=== PATIENT | male | born 1960 | race Caucasian/White ===

== ENCOUNTER 2019-05-15 15:15 | Outpatient (RCR) | payer BC, SELFPAY ==
[2019-05-08 15:06] VITALS: BP 140/86; PULSE 83; RESP 16; TEMP 37; BMI 91.4
--- NOTE | 2019-05-08 16:44 | HP.PCM_ITS ---
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 History of Wound: Patient was working in his garage 6-8 weeks ago when he bumped his leg that created an opened area. He went to his PCP when it wasn't healed. PCP started him on Bactrim and Silvadene cream. He has a history of bilateral le g edema. He has worn compression in the past, but has not been wearing it lately. 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 He denies fevers. He state he has a good appetite. Past Medical History Past Medical History: Chronic Problems Ulcer of right lower leg (Chronic) Bilateral edema of lower extremity (Chronic) Chronic anticoagulation (Chronic) Past Medical History: History of DVT and PE. On Xeralto. Allergies/Adverse Reactions: Allergies No Known Allergies Allergy (Verified 05/08/19 15:34) Home Medications: Ambulatory Orders Medication Instructions Recorded Cyanocobalamin [Vitamin B12] mcg PO DAILY@0800 05/08/19 Furosemide 40 mg PO BID 05/08/19 Lactobacillus Acidophilus 1 ea PO DAILY 05/08/19 [Acidophilus] Multivitamin [Daily Multiple 1 ea PO DAILY 05/08/19 Vitamin] Rivaroxaban [Xarelto] 20 mg PO DAILY 05/08/19 Smoking Status: Never smoker Review of Systems Constitutional: Denies: Chills, Fever, Weight Change Eyes: Denies: Pain, Vision Change HEENT: Denies: Difficulty Hearing, Difficulty Swallowing, Sinus Congestion Cardiovascular: Denies: Chest Pain, Palpitations Respiratory: Denies: Cough, Shortness of Breath Gastrointestinal: Denies: Diarrhea, Nausea, Vomiting Musculoskeletal: Reports: Leg Pain Skin: Reports: Wounds - right lower leg ulcer Neurological: Denies: Balance problems, Change in Speech, Incoordination Endocrine: Denies: Heat/ Cold Intolerance, Polydipsia, Polyuria Hematologic/ Lymphatic: Reports: Easy Bruising, Easy Bleeding - Physical Exam Vital Signs Temp Pulse Resp BP 98.6 F 83 16 140/86 H 05/08/19 15:06 05/08/19 15:06 05/08/19 15:06 05/08/19 15:06 General: Alert, Oriented x3, Cooperative HEENT: Atraumatic Oral: Moist Mucosa Lungs: Clear to auscultation, Normal air movement Cardiovascular: Regular rate, Regular Rhythm Abdomen: Bowel Sounds Present, Soft Extremities: Capillary Refill Less than 3 Seconds, Diminished Peripheral Pulses, Edema - bilateral lower leg edema with brown discoloration Skin: Ulcer/ Wound - right lower leg ulcer Wound Measurements and Assessment WC - Nurse 1 - General Ulcer Measurement Start: 05/08/19 15:06 Freq: Status: Active Protocol: Activity Type Activity Date Activity User E-Sign Co-Sign Detail Recorded Client Recorded Date Recorded By Document 05/08/19 15:06 [facility] [id number] 05/08/19 15:26 [facility] 05/08/19 15:06 Wound Center Nurse 1 [Ulcer Assessment] #1- R LUIS CLUSTER -Combined with other wound No -Current Size (cm) - Length 2.4 -Current Size (cm) - Width 2.1 -Current Size (cm) - Depth 0.1 -Total Square Cm 5.04 -Date of Last Picture (Recall this 05/08/19 field) -Photo Taken Yes -Epithelialization None Present -Tunneling No -Undermining/Tunneling No -Circular Undermining No -Exudate Amt Small -Exudate Type Serous -Wound Margin Distinct, Outline Attached -Granulation Amt None Present (0 %) -Slough/Fibrin Yes -Necrosis Amt Large (67-100%) -Necrotic Tissue Type Adherent Slough -Texture (Dagmar-wound Skin Appearance) Assessed, Scarring -Moisture (Dagmar-wound Skin Appearance Assessed ) -Color (Dagmar-wound Skin Appearance) Assessed, Hemosiderin Staining -Temperature (Dagmar-wound Skin No Abnormality Appearance) (Pt Warm) -Tenderness on Palpation (Dagmar-wound Yes Skin Appearance) -Ulcer Cleansing Rinsed/ Irrigated with Saline -Foul Odor after Cleansing No -Anesthetic Used 5% Lidocaine Gel [Edema Assessment] -Lower Limb Edema Present Yes -Right Calf (cm) 50 -Right Ankle (cm) 31.1 -Left Calf (cm) 51 -Left Ankle (cm) 31.5 WC - Nurse 2 - General Ulcer CM Notes Start: 05/08/19 15:06 Freq: Status: Active Protocol: Activity Type Activity Date Activity User E-Sign Co-Sign Detail Recorded Client Recorded Date Recorded By Document 05/08/19 15:57 [id number] 05/08/19 16:00 05/08/19 15:57 Wound Center Nurse 2 [Procedure/Treatment] #1- R LUIS CLUSTER -Time 15:57 -Correct Patient Yes -Correct Side, Site, Position Yes -Correct Procedure Yes -Procedure Performed Yes -Type of Procedure Debridement -Clinical Debridement Subcutaneous -Post Debridement Size (cm) - Length 2.5 -Post Debridement Size (cm) - Width 2.7 -Post Debridement Size (cm) - Depth 0.2 -Total Square Cm 6.75 -Wound/Ulcer Outcome Not Healed -Ulcer Cleansing Rinsed/ Irrigated with Saline -Foul Odor after Cleansing No -Bioengineered Tissue No -Bleeding Controlled with Pressure -Offloading No -Treatment Response Procedure Tolerated Well [See Physician Procedure note for Specifics] Pain Scale: 0-10 Numeric [Pain] -Is Patient Pain Free? Yes Musculoskeletal: No Muscle Wasting Neurological: Neuro grossly intact Psych/Mental Status: Normal Affect, Appropriate Debridement Note Post-Debridement Measurements/Treatment - Nurse 2 - General Ulcer CM Notes Start: 05/08/19 15:06 Freq: Status: Active Protocol: Activity Type Activity Date Activity User E-Sign Co-Sign Detail Recorded Client Recorded Date Recorded By Document 05/08/19 15:57 [id number] 05/08/19 16:00 05/08/19 15:57 Wound Center Nurse 2 #1- R LUIS CLUSTER -Time 15:57 -Correct Patient Yes -Correct Side, Site, Position Yes -Correct Procedure Yes -Procedure Performed Yes -Type of Procedure Debridement -Clinical Debridement Subcutaneous -Post Debridement Size (cm) - Length 2.5 -Post Debridement Size (cm) - Width 2.7 -Post Debridement Size (cm) - Depth 0.2 -Total Square Cm 6.75 -Wound/Ulcer Outcome Not Healed -Ulcer Cleansing Rinsed/ Irrigated with Saline -Foul Odor after Cleansing No -Bioengineered Tissue No -Bleeding Controlled with Pressure -Offloading No -Treatment Response Procedure Tolerated Well Pain Scale: 0-10 Numeric Is Patient Pain Free? Yes Wound debrided: lower leg Laterality: Right Type of Debridement: Excisional debridement Anesthesia Used: 5% Lidocaine Gel Depth: Down to and including healthy tissue, in the subcutaneous layer Percentage of wound debrided: 100 Instrument Used: 3mm curette Tissue Removed: Subcutaneous tissue and slough Severity: Fat Layer Exposed Amount of bleeding with debridement: Mild Bleeding Controlled with: Pressure, Compression and gauze Patient tolerated procedure well Assessment/Plan Assessment: 1. Ulcer right lower leg. 2. Bilateral lower leg edema. 3. Chronic anticoagulation Plan: Patient was evaluated today at the wound healing center. A subcutaneous was performed. Patient has an ulcer on his right lower leg. Will start Santyl for wound care to help decrease the biofilm. Will use tubigrips for compression. Patient was placed on Bactrim by his PCP which he just finished. Will order arterial and venous studies. Follow up one week. Code Visit Office Visits / Consults: [id number] OV L3 New - 25 modifer 111xxx-113xx: [id number] Ivett subq tissue 20 sq cm/<
[2019-05-15 15:40] VITALS: BP 131/81; PULSE 84; RESP 18; TEMP 36.6; BMI 91.4
--- NOTE | 2019-05-15 17:13 | PCM.WC.PN ---
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 History of Wound: Patient was working in his garage 6-8 weeks ago when he bumped his leg that created an opened area. He went to his PCP when it wasn't healed. PCP started him on Bactrim and Silvadene cream. He has a history of bilateral leg edema. He has worn compression in the past, but has not been wearing it lately. 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 Wound care is snatly to the right anterior lower leg cluster opened area. Waiting for vascular studie which are scheduled next week. He denies fevers. He state he has a good appetite. - Physical Exam Vital Signs Temp Pulse Resp BP 98 F 84 18 131/81 H 05/15/19 15:40 05/15/19 15:40 05/15/19 15:40 05/15/19 15:40 General: Alert, Oriented x3, Cooperative HEENT: Atraumatic Oral: Moist Mucosa Lungs: Normal air movement Cardiovascular: Regular rate Extremities: Edema, Peripheral Pulses Normal Skin: Ulcer/ Wound - right anterior lower leg Wound Measurements and Assessment WC - Nurse 1 - General Ulcer Measurement Start: 05/08/19 15:06 Freq: Status: Active Protocol: Activity Type Activity Date Activity User E-Sign Co-Sign Detail Recorded Client Recorded Date Recorded By Document 05/15/19 15:40 RB [id number] 05/15/19 15:42 RB 05/15/19 15:40 Wound Center Nurse 1 [Ulcer Assessment] #1- R LUIS CLUSTER -Combined with other wound No -Current Size (cm) - Length 2.2 -Current Size (cm) - Width 2.3 -Current Size (cm) - Depth 0.1 -Total Square Cm 5.06 -Epithelialization Small 1-33% -Tunneling No -Undermining/Tunneling No -Circular Undermining No -Exudate Amt Small -Exudate Type Serosanguineous -Wound Margin Flat & Intact -Granulation Amt Medium (34-66%) -Granulation Quality [place] -Slough/Fibrin Yes -Necrosis Amt Small (1-33%) -Necrotic Tissue Type Adherent Slough -Structure Exposed N/A -Texture (Dagmar-wound Skin Appearance) Assessed -Moisture (Dagmar-wound Skin Appearance Assessed ) -Color (Dagmar-wound Skin Appearance) Hemosiderin Staining -Temperature (Dagmar-wound Skin No Abnormality Appearance) (Pt Warm) -Tenderness on Palpation (Dagmar-wound No Skin Appearance) -Ulcer Cleansing Wound Cleanser -Foul Odor after Cleansing No -Anesthetic Used 5% Lidocaine Gel [Edema Assessment] -Lower Limb Edema Present Yes -Right Calf (cm) 53 -Right Ankle (cm) 31 WC - Nurse 2 - General Ulcer CM Notes Start: 05/08/19 15:06 Freq: Status: Active Protocol: Activity Type Activity Date Activity User E-Sign Co-Sign Detail Recorded Client Recorded Date Recorded By Document 05/15/19 16:30 [email or web address] [id number] 05/15/19 16:34 05/15/19 16:30 Wound Center Nurse 2 [Procedure/Treatment] #1- R LUIS CLUSTER -Time 16:31 -Correct Patient Yes -Correct Side, Site, Position Yes -Correct Procedure Yes -Procedure Performed Yes -Type of Procedure Debridement -Clinical Debridement Subcutaneous -Post Debridement Size (cm) - Length 2.5 -Post Debridement Size (cm) - Width 2.0 -Post Debridement Size (cm) - Depth 0.2 -Total Square Cm 5.00 -Wound/Ulcer Outcome Not Healed -Ulcer Cleansing Rinsed/ Irrigated with Saline -Foul Odor after Cleansing No -Bioengineered Tissue No -Bleeding Controlled with Pressure -Offloading No -Treatment Response Procedure Tolerated Well [See Physician Procedure note for Specifics] Pain Scale: 0-10 Numeric [Pain] -Is Patient Pain Free? Yes Musculoskeletal: No Muscle Wasting Neurological: Neuro grossly intact Psych/Mental Status: Normal Affect, Appropriate Debridement Note Post-Debridement Measurements/Treatment WC - Nurse 2 - General Ulcer CM Notes Start: 05/08/19 15:06 Freq: Status: Active Protocol: Activity Type Activity Date Activity User E-Sign Co-Sign Detail Recorded Client Recorded Date Recorded By Document 05/08/19 15:57 [id number] 05/08/19 16:00 Document 05/15/19 16:30 [id number] 05/15/19 16:34 05/08/19 05/15/19 15:57 16:30 Wound Center Nurse 2 #1- R LUIS CLUSTER -Time 15:57 16:31 -Correct Patient Yes Yes -Correct Side, Site, Position Yes Yes -Correct Procedure Yes Yes -Procedure Performed Yes Yes -Type of Procedure Debridement Debridement -Clinical Debridement Subcutaneous Subcutaneous -Post Debridement Size (cm) - Length 2.5 2.5 -Post Debridement Size (cm) - Width 2.7 2.0 -Post Debridement Size (cm) - Depth 0.2 0.2 -Total Square Cm 6.75 5.00 -Wound/Ulcer Outcome Not Healed Not Healed -Ulcer Cleansing Rinsed/ Rinsed/ Irrigated with Irrigated with Saline Saline -Foul Odor after Cleansing No No -Bioengineered Tissue No No -Bleeding Controlled with Pressure Pressure -Offloading No No -Treatment Response Procedure Procedure Tolerated Well Tolerated Well Pain Scale: 0-10 Numeric Is Patient Pain Free? Yes Yes Wound debrided: anterior lower leg cluster Laterality: Right Type of Debridement: Excisional debridement Anesthesia Used: 5% Lidocaine Gel Depth: Down to and including healthy tissue, in the subcutaneous layer Percentage of wound debrided: 100 Instrument Used: 5mm curette Tissue Removed: Subcutaneous tissue and slough Severity: Fat Layer Exposed Amount of bleeding with debridement: Mild Bleeding Controlled with: Pressure Patient tolerated procedure well Assessment/Plan Assessment: 1. Ulcer right lower leg. 2. Bilateral lower leg edema. 3. Chronic anticoagulation Plan: Patient was evaluated today at the wound healing center. A subcutaneous was performed. Patient has an ulcer on his right lower leg. Continue Santyl daily for wound care to help decrease the biofilm. Will use tubigrips for compression. Patient was placed on Bactrim by his PCP which he just finished. Arterial and venous studies are scheduled for next week. Follow up two weeks. Code Visit 111xxx-113xx: [id number] Ivett subq tissue 20 sq cm/<
== END 2019-05-19 23:59 ==
LOC: WC 15:15
PROVIDERS: Visit Provider Nurse Practitioner Family
DX: L97.812 Non-pressure chronic ulcer of other part of right lower leg with fat layer exposed (principal); R60.0 Localized edema; Z79.01 Long term (current) use of anticoagulants; Z86.718 Personal history of other venous thrombosis and embolism; Z86.711 Personal history of pulmonary embolism
CPT/HCPCS: 11042; 29581; 99203; G0463

== ENCOUNTER 2019-05-31 13:00 | Outpatient (RCR) | payer BC, SELFPAY ==
[2019-05-08 15:06] VITALS: BMI 91.4
[2019-05-29 15:53] VITALS: BP 138/79; PULSE 88; RESP 18; TEMP 36.8; BMI 91.4
--- NOTE | 2019-05-29 16:57 | PCM.WC.PN ---
(1) Ulcer of right lower leg Status: Chronic Code(s): L97.919 - Non-pressure chronic ulcer of unspecified part of right lower leg with unspecified severity (2) Bilateral edema of lower extremity Status: Chronic Code(s): R60.0 - Localized edema Type of Wound Date of Service: 05/29/19 Chief Complaint: Opened area on right lower leg. History of Wound: Patient was working in his garage 6-8 weeks ago when he bumped his leg that created an opened area. He went to his PCP when it wasn't healed. PCP started him on Bactrim and Silvadene cream. He has a history of bilateral leg edema. He has worn compression in the past, but has not been wearing it lately. 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 Wound care is santyl to the right anterior lower leg cluster opened area. Waiting for vascular studie which are scheduled next week. He denies fevers. He state he has a good appetite. Progress of Wound: Stable ulcer. Continues to have lower extremity edema. - Physical Exam Vital Signs Temp Pulse Resp BP 98.2 F 88 18 138/79 H 05/29/19 15:53 05/29/19 15:53 05/29/19 15:53 05/29/19 15:53 General: Alert, Oriented x3, Cooperative HEENT: Atraumatic Oral: Moist Mucosa Lungs: Normal air movement Cardiovascular: Regular rate Extremities: Capillary Refill Less than 3 Seconds, Diminished Peripheral Pulses, Edema Skin: Ulcer/ Wound - right anterior lower leg ulcer that is very painful with debridement Wound Measurements and Assessment WC - Nurse 1 - General Ulcer Measurement Start: 05/29/19 15:53 Freq: Status: Active Protocol: Activity Type Activity Date Activity User E-Sign Co-Sign Detail Recorded Client Recorded Date Recorded By Document 05/29/19 15:53 DV [id number] 05/29/19 15:58 DV 05/29/19 15:53 Wound Center Nurse 1 [Ulcer Assessment] #1- R LUIS CLUSTER -Combined with other wound No -Current Size (cm) - Length 2.5 -Current Size (cm) - Width 3.0 -Current Size (cm) - Depth 0.1 -Total Square Cm 7.50 -Photo Taken No -Epithelialization None Present -Tunneling No -Undermining/Tunneling No -Circular Undermining No -Classification - Thickness Full Thickness without Exposed Support Structure -Wound Margin Flat & Intact -Granulation Amt Medium (34-66%) -Granulation Quality Red -Slough/Fibrin Yes -Necrosis Amt Large (67-100%) -Necrotic Tissue Type Adherent Slough -Structure Exposed None/Limited to Skin Breakdown -Texture (Dagmar-wound Skin Appearance) Assessed, Scarring -Moisture (Dagmar-wound Skin Appearance Assessed, ) Maceration, Weeping -Color (Dagmar-wound Skin Appearance) Assessed, Erythema -Temperature (Dagmar-wound Skin No Abnormality Appearance) (Pt Warm) -Tenderness on Palpation (Dagmar-wound Yes Skin Appearance) -Foul Odor after Cleansing No -Anesthetic Used 5% Lidocaine Gel [Edema Assessment] -Lower Limb Edema Present Yes WC - Nurse 2 - General Ulcer CM Notes Start: 05/29/19 15:53 Freq: Status: Active Protocol: Activity Type Activity Date Activity User E-Sign Co-Sign Detail Recorded Client Recorded Date Recorded By Document 05/29/19 16:08 [email or web address] [id number] 05/29/19 16:14 05/29/19 16:08 Wound Center Nurse 2 [Procedure/Treatment] #1- R LUIS CLUSTER -Time 16:09 -Correct Patient Yes -Correct Side, Site, Position Yes -Correct Procedure Yes -Procedure Performed Yes -Type of Procedure Debridement -Clinical Debridement Subcutaneous -Post Debridement Size (cm) - Length 2.4 -Post Debridement Size (cm) - Width 2.4 -Post Debridement Size (cm) - Depth 0.2 -Total Square Cm 5.76 -Wound/Ulcer Outcome Not Healed -Ulcer Cleansing Rinsed/ Irrigated with Saline -Foul Odor after Cleansing No -Bioengineered Tissue No -Bleeding Controlled with Pressure -Offloading No -Treatment Response Procedure Tolerated Well [See Physician Procedure note for Specifics] Pain Scale: 0-10 Numeric [Pain] -Is Patient Pain Free? Yes Musculoskeletal: No Tenderness to Palpation of Joints or Extremities Neurological: Neuro grossly intact Psych/Mental Status: Normal Affect, Appropriate Debridement Note Post-Debridement Measurements/Treatment - Nurse 2 - General Ulcer CM Notes Start: 05/29/19 15:53 Freq: Status: Active Protocol: Activity Type Activity Date Activity User E-Sign Co-Sign Detail Recorded Client Recorded Date Recorded By Document 05/29/19 16:08 [id number] 05/29/19 16:14 JF 05/29/19 16:08 Wound Center Nurse 2 #1- R TOBY CLUSTER -Time 16:09 -Correct Patient Yes -Correct Side, Site, Position Yes -Correct Procedure Yes -Procedure Performed Yes -Type of Procedure Debridement -Clinical Debridement Subcutaneous -Post Debridement Size (cm) - Length 2.4 -Post Debridement Size (cm) - Width 2.4 -Post Debridement Size (cm) - Depth 0.2 -Total Square Cm 5.76 -Wound/Ulcer Outcome Not Healed -Ulcer Cleansing Rinsed/ Irrigated with Saline -Foul Odor after Cleansing No -Bioengineered Tissue No -Bleeding Controlled with Pressure -Offloading No -Treatment Response Procedure Tolerated Well Pain Scale: 0-10 Numeric Is Patient Pain Free? Yes Wound debrided: anterior lower leg ulcer Laterality: Right Type of Debridement: Excisional debridement Anesthesia Used: 5% Lidocaine Gel Depth: Down to and including healthy tissue, in the subcutaneous layer Percentage of wound debrided: 100 Instrument Used: 5mm curette Tissue Removed: subcutaneous tissue and slough Severity: Fat Layer Exposed Amount of bleeding with debridement: Mild Bleeding Controlled with: Pressure Patient tolerated procedure well Assessment/Plan Assessment: 1. Ulcer right lower leg. 2. Bilateral lower leg edema. 3. Chronic anticoagulation Plan: Patient was evaluated today at the wound healing center. A subcutaneous debridement was performed and patient tolerated it well. Patient has an ulcer on his right lower leg. Patient was placed on Bactrim by his PCP which he finished. He continues to have a significant amount of edema with the double layer tubigrip. Wound care: Will stop Santyl and will place silver over the ulcer. Will apply 3M double wraps now. He has his vascular studies done on so he will come back here for a nurse visit afterwards to have the silver and 3M double wraps reapplied. Follow up next Tuesday. Code Visit 111xxx-113xx: [id number] Ivett subq tissue 20 sq cm/<
--- NOTE | 2019-05-31 12:56 | ART_ITS ---
Reason For Study: R grider ulcer Procedure A bilateral lower extremity continuous wave Doppler with analog waveform analysis,segmental pressures,and ankle brachial indexes without exercise. Left Segmental Pressures Left brachial= 145mmHg. Left posterior tibial artery = 170mmHg. Left dorsalis pedis artery = 159mmHg. Left digit = 150 mmHg. The left dorsalis pedis waveforms are triphasic. The left posterior tibial artery waveforms are triphasic. Right Segmental Pressures Right brachial= 140mmHg. Right posterior tibial artery = 172mmHg. Right dorsalis pedis artery = 166mmHg. Right digit = 152 mmHg. The right dorsalis pedis waveforms are triphasic. The right posterior tibial artery waveforms are triphasic. Indices The right ankle brachial index by the dorsalis pedis is 1.14. The right ankle brachial index by the posterior tibial artery is 1.19. The right digital-brachial index is 1.05. The left ankle brachial index by the dorsalis pedis is 1.1. The left ankle brachial index by the posterior tibial artery is 1.17. The left digital-brachial index is 1.03. Interpretation Summary Triphasic Doppler waveforms are noted at ankle level bilaterally. Pulse-volume recordings appear satisfactory at all levels bilaterally. Resting ankle-brachial indices are normal bilaterally. Digital-brachial indices are normal bilaterally. There is no evidence of significant arterial occlusive disease in the lower extremities bilaterally. Ordering Physician: Viki Schmidt Performed By: PALMER MONTEZ RVT
--- NOTE | 2019-05-31 12:56 | VDLE_ITS ---
Reason For Study: edema, Hx DVT RIGHT LEFT CFV is compressible, spontaneous, phasic, CFV is compressible, spontaneous, phasic, competent and demonstrates normal competent, and demonstrates normal augmentation. augmentation. FV is compressible, spontaneous, phasic, FV is compressible, spontaneous, phasic, competent and demonstrates normal competent and demonstrates normal augmentation. augmentation. POP V is compressible, spontaneous, phasic, POP V is compressible, spontaneous, phasic, competent and demonstrates normal competent and demonstrates normal augmentation. augmentation. T/P Trunk is compressible. T/P Trunk is compressible. PTV is compressible. PTV is compressible. RT PerV is compressible. LT PerV is compressible. SFJ is INCOMPETENT and measures .73 x .81 cm. SFJ is competent and measures .67 x .66 cm. GSV proximal thigh measures .79 x .79 cm. GSV proximal thigh measures .55 x .50 cm. GSV at knee measures .89 x .92 cm. GSV at knee measures .57 x .56 cm. GSV INCOMPETENT throughout for greater than GSV INCOMPETENT throughout for greater than 0.5 seconds. 0.5 seconds. SSV proximal calf is INCOMPETENT for greater SSV proximal calf is INCOMPETENT for greater than 0.5 seconds and measures .42 x .36 cm. than 0.5 seconds and measures .34 x .36 cm. ASV branching from the GSV at the proximal ASV branching from the GSV just below the thigh is incompetent for greater than .5 knee is incompetent for greater than .5 seconds. ASV measures .59 x .71 cm. seconds. ASV measures .38 x .45 cm. ASV branching from the GSV just below the knee is incompetent for greater than .5 seconds. ASV measures .73 x .69 cm. Procedure Exam performed in department. The exam was diagnostic. Interpretation Summary Deep veins of the lower extremities are bilaterally patent and compressible segmentally. There is no evidence of deep vein thrombosis on either side. Valvular competence appears intact within the proximal deep venous systems bilaterally. The great saphenous veins appear bilaterally patent and compressible segmentally. The right sapheno-femoral junction is incompetent . The left sapheno- femoral junction is competent . Segmental valvular incompetence is noted within the great saphenous veins bilaterally. Small saphenous veins are patent and incompetent bilaterally. An incompetent accessory saphenous vein is noted in the right proximal thigh. An incompetent accessory saphenous vein is noted below the right knee. An incompetent accessory saphenous vein is noted below the left knee. Ordering Physician: Viki Schmidt Performed By: Cooper Callahan RVT
== END 2019-06-19 23:59 ==
LOC: CVS 13:00
PROVIDERS: Family Provider Internal Medicine; PCP Internal Medicine; Referring Provider Nurse Practitioner Family; Visit Provider Nurse Practitioner Family
DX: L97.819 Non-pressure chronic ulcer of other part of right lower leg with unspecified severity (principal); R60.0 Localized edema; Z86.718 Personal history of other venous thrombosis and embolism
CPT/HCPCS: 93923; 93970

== ENCOUNTER 2019-06-18 15:30 | Outpatient (RCR) | payer BC, SELFPAY ==
[2019-05-20 01:20] VITALS: BP 131/81; PULSE 84; RESP 18; TEMP 36.6
[2019-05-29 15:53] VITALS: BMI 91.4
[2019-05-31 14:49] VITALS: BP 148/91; PULSE 82; RESP 16; TEMP 36.9; BMI 91.4
[2019-06-05 15:08] VITALS: BP 143/86; PULSE 81; RESP 18; TEMP 36.8; BMI 91.4
--- NOTE | 2019-06-05 16:22 | PN.PCM_ITS ---
(1) Venous ulcer-leg syndrome, right Status: Chronic Code(s): L97.919 - Non-pressure chronic ulcer of unspecified part of right lower leg with unspecified severity (2) Ulcer of right lower leg Status: Chronic Code(s): L97.919 - Non-pressure chronic ulcer of unspecified part of right lower leg with unspecified severity (3) Bilateral edema of lower extremity Status: Chronic Code(s): R60.0 - Localized edema (4) Chronic anticoagulation Status: Chronic Code(s): Z79.01 - [facility] (current) use of anticoagulants Type of Wound Date of Service: 06/05/19 Chief Complaint: Opened area on right lower leg. History of Wound: Patient was working in his garage 6-8 weeks ago when he bumped his leg that created an opened area. He went to his PCP when it wasn't healed. PCP started him on Bactrim and Silvadene cream. He has a history of bilateral leg edema. He has worn compression in the past, but has not been wearing it lately. 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 Wound care is santyl to the right anterior lower leg cluster opened area. On 05/31/19 he had vascular studies. Arterial studies which showed right SHAGGY=1.14, left SHAGGY= 1.1. There is no evidence of significant arterial occlusive disease in the lower extremities bilaterally. Venous duplex ultrasound showed the right sapheno- femoral junction is incompetent. Segmental valvular incompetence is noted within the great saphenous veins bilaterally. Small saphenous veins are patent and incompetent bilaterally. An incompetent accessory saphenous vein is noted in the right proximal thigh. An incompetent accessory saphenous vein is noted below the right knee. An incompetent accessory saphenous vein is noted below the left knee. We will refer him to Dr. Moran for further evaluation. Instructed him on the importance of elevating his legs bilaterally, multiple times a day. Instructed him that walking is good but he should try to avoid standing for long periods of time or letting his legs hanging dependently. He denies fevers. He state he has a good appetite. Progress of Wound: Stable - Physical Exam Vital Signs Temp Pulse Resp BP 98.2 F 81 18 143/86 H 06/05/19 15:08 06/05/19 15:08 06/05/19 15:08 06/05/19 15:08 General: Alert, Oriented x3, Cooperative HEENT: Atraumatic Oral: Moist Mucosa Lungs: Normal air movement Cardiovascular: Regular rate Abdomen: Obese Extremities: Capillary Refill Less than 3 Seconds, Diminished Peripheral Pulses, Edema Skin: Ulcer/ Wound - Right anterior lower leg Wound Measurements and Assessment WC - Nurse 1 - General Ulcer Measurement Start: 05/31/19 14:49 Freq: Status: Active Protocol: Activity Type Activity Date Activity User E-Sign Co-Sign Detail Recorded Client Recorded Date Recorded By Document 06/05/19 15:08 DL [id number] 06/05/19 15:18 DL 06/05/19 15:08 Wound Center Nurse 1 [Ulcer Assessment] #1- R LUIS CLUSTER -Current Size (cm) - Length 2.7 -Current Size (cm) - Width 2.1 -Current Size (cm) - Depth 0.2 -Total Square Cm 5.67 -Photo Taken No -Exudate Amt Small -Exudate Type Serosanguineous -Wound Margin Distinct, Outline Attached -Granulation Amt Medium (34-66%) -Granulation Quality [place] -Necrosis Amt Medium (34-66%) -Necrotic Tissue Type Adherent Slough -Structure Exposed N/A -Texture (Dagmar-wound Skin Appearance) Scarring -Moisture (Dagmar-wound Skin Appearance No Abnormality ) -Color (Dagmar-wound Skin Appearance) Mottled -Temperature (Dagmar-wound Skin No Abnormality Appearance) (Pt Warm) -Tenderness on Palpation (Dagmar-wound No Skin Appearance) -Ulcer Cleansing Wound Cleanser -Foul Odor after Cleansing No -Anesthetic Used 5% Lidocaine Gel [Edema Assessment] -Right Calf (cm) 46 -Right Ankle (cm) 28.2 WC - Nurse 2 - General Ulcer CM Notes Start: 05/31/19 14:49 Freq: Status: Active Protocol: Activity Type Activity Date Activity User E-Sign Co-Sign Detail Recorded Client Recorded Date Recorded By Document 06/05/19 15:34 DV [id number] 06/05/19 15:40 DV 06/05/19 15:34 Wound Center Nurse 2 [Procedure/Treatment] #1- R LUIS CLUSTER -Time 15:35 -Correct Patient Yes -Correct Side, Site, Position Yes -Correct Procedure Yes -Procedure Performed Yes -Type of Procedure Debridement -Clinical Debridement Subcutaneous -Post Debridement Size (cm) - Length 2.7 -Post Debridement Size (cm) - Width 2.0 -Post Debridement Size (cm) - Depth 0.3 -Total Square Cm 5.40 -Wound/Ulcer Outcome Not Healed -Ulcer Cleansing Rinsed/ Irrigated with Saline -Foul Odor after Cleansing No -Bioengineered Tissue No -Bleeding Controlled with Pressure -Offloading No -Treatment Response Procedure Tolerated Well [See Physician Procedure note for Specifics] Pain Scale: 0-10 Numeric [Pain] -Is Patient Pain Free? Yes Musculoskeletal: No Muscle Wasting, Tenderness - Patient is very tender around the site of the ulcer on his right anterior lower leg Neurological: Neuro grossly intact Psych/Mental Status: Normal Affect, Appropriate Debridement Note Post-Debridement Measurements/Treatment WC - Nurse 2 - General Ulcer CM Notes Start: 05/31/19 14:49 Freq: Status: Active Protocol: Activity Type Activity Date Activity User E-Sign Co-Sign Detail Recorded Client Recorded Date Recorded By Document 06/05/19 15:34 DV [id number] 06/05/19 15:40 DV 06/05/19 15:34 Wound Center Nurse 2 #1- R LUIS CLUSTER -Time 15:35 -Correct Patient Yes -Correct Side, Site, Position Yes -Correct Procedure Yes -Procedure Performed Yes -Type of Procedure Debridement -Clinical Debridement Subcutaneous -Post Debridement Size (cm) - Length 2.7 -Post Debridement Size (cm) - Width 2.0 -Post Debridement Size (cm) - Depth 0.3 -Total Square Cm 5.40 -Wound/Ulcer Outcome Not Healed -Ulcer Cleansing Rinsed/ Irrigated with Saline -Foul Odor after Cleansing No -Bioengineered Tissue No -Bleeding Controlled with Pressure -Offloading No -Treatment Response Procedure Tolerated Well Pain Scale: 0-10 Numeric Is Patient Pain Free? Yes Wound debrided: Anterior lower leg wound cluster Laterality: Right Type of Debridement: Excisional debridement Anesthesia Used: 5% Lidocaine Gel Depth: Down to and including healthy tissue, in the subcutaneous layer Percentage of wound debrided: 100 Instrument Used: 3mm curette Tissue Removed: Subcutaneous tissue and slough Severity: Fat Layer Exposed Amount of bleeding with debridement: Mild Bleeding Controlled with: Pressure Patient did not tolerate procedure well - Patient experience a lot of pain with his debridement. Assessment/Plan Assessment: 1. Ulcer right lower leg. 2. Bilateral lower leg edema. 3. Chronic anticoagulation Plan: Patient was evaluated today at the wound healing center. A subcutaneous debridement was performed and patient tolerated it well. Patient has an ulcer on his right lower leg. Patient was placed on Bactrim by his PCP which he finished. He continues to have a significant amount of edema with the double layer tubigrip. Wound care: Santyl with double layer Tubigrip. Patient did not tolerate the 3M double wraps well. 05/31/19 he had vascular studies. Arterial studies which showed right SHAGGY=1.14, left SHAGGY= 1.1. There is no evidence of significant arterial occlusive disease in the lower extremities bilaterally. Venous duplex ultrasound showed the right sapheno-femoral junction is incompetent. Segmental valvular incompetence is noted within the great saphenous veins bilaterally. Small saphenous veins are patent and incompetent bilaterally. An incompetent accessory saphenous vein is noted in the right proximal thigh. An incompetent accessory saphenous vein is noted below the right knee. An incompetent accessory saphenous vein is noted below the left knee. We will refer him to Dr. Moran for further evaluation. Instructed him on the importance of elevating his legs bilaterally, multiple times a day. Instructed him that walking is good but he should try to avoid standing for long periods of time or letting his legs hanging dependently. Follow up 2 weeks Code Visit [id number]: [id number] Ivett subq tissue 20 sq cm/<
[2019-06-18 15:34] VITALS: BP 117/79; PULSE 82; RESP 16; TEMP 37; BMI 91.4
--- NOTE | 2019-06-18 16:21 | PN.PCM_ITS ---
(1) Venous ulcer-leg syndrome, right Status: Chronic Code(s): L97.919 - Non-pressure chronic ulcer of unspecified part of right lower leg with unspecified severity (2) Ulcer of right lower leg Status: Chronic Code(s): L97.919 - Non-pressure chronic ulcer of unspecified part of right lower leg with unspecified severity (3) Bilateral edema of lower extremity Status: Chronic Code(s): R60.0 - Localized edema (4) Chronic anticoagulation Status: Chronic Code(s): Z79.01 - intermediate (current) use of anticoagulants Type of Wound Date of Service: 06/18/19 Chief Complaint: Opened area on right lower leg. History of Wound: Patient was working in his garage 6-8 weeks ago when he bumped his leg that created an opened area. He went to his PCP when it wasn't healed. PCP started him on Bactrim and Silvadene cream. He has a history of bilateral leg edema. He has worn compression in the past, but has not been wearing it lately. 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 He continues to have significant amount of edema of lower legs bilaterally. He had 3M double layer wraps on but he states after 3 days they become painful and constricting. Will place silver on the ulcer and place 3M two layer wraps. He is to keep this on for as long as he can tolerate (most likely 2-4 days). He will then take off the 3M wraps and start using daily santyl to the ulcer and start using double layer tubigrips. Hopefully the 3M wraps will have decreased some of the swelling in his leg before placing the tubigrips. On 05/31/19 he had vascular studies. Arterial studies which showed right SHAGGY=1.14, left SHAGGY= 1.1. There is no evidence of significant arterial occlusive disease in the lower extremities bilaterally. Venous duplex ultrasound showed the right sapheno-femoral junction is incompetent. Segmental valvular incompetence is noted within the great saphenous veins bilaterally. Small saphenous veins are patent and incompetent bilaterally. An incompetent accessory saphenous vein is noted in the right proximal thigh. An incompetent accessory saphenous vein is noted below the right knee. An incompetent accessory saphenous vein is noted below the left knee. We will refer him to Dr. Moran for further evaluation. Instructed him on the importance of elevating his legs bilaterally, multiple times a day. Instructed him that walking is good but he should try to avoid standing for long periods of time or letting his legs hanging dependently. He denies fevers. He state he has a good appetite. Progress of Wound: Stable - Physical Exam Vital Signs Temp Pulse Resp BP 98.6 F 82 16 117/79 06/18/19 15:34 06/18/19 15:34 06/18/19 15:34 06/18/19 15:34 General: Alert, Oriented x3, Cooperative HEENT: Atraumatic Oral: Moist Mucosa Lungs: Normal air movement Cardiovascular: Regular rate Abdomen: Soft Extremities: Capillary Refill Less than 3 Seconds, Diminished Peripheral Pulses, Edema Skin: Ulcer/ Wound - right lower leg cluster. Wound Measurements and Assessment WC - Nurse 1 - General Ulcer Measurement Start: 05/31/19 14:49 Freq: Status: Active Protocol: Activity Type Activity Date Activity User E-Sign Co-Sign Detail Recorded Client Recorded Date Recorded By Document 06/18/19 15:34 [facility] [id number] 06/18/19 15:38 [facility] 06/18/19 15:34 Wound Center Nurse 1 [Ulcer Assessment] #1- R LUIS CLUSTER -Combined with other wound No -Current Size (cm) - Length 2.8 -Current Size (cm) - Width 2.1 -Current Size (cm) - Depth 0.1 -Total Square Cm 5.88 -Photo Taken No -Epithelialization Small 1-33% -Tunneling No -Undermining/Tunneling No -Circular Undermining No -Exudate Amt Small -Exudate Type Serosanguineous -Wound Margin Distinct, Outline Attached -Granulation Amt Small (1-33%) -Granulation Quality Red -Slough/Fibrin Yes -Necrosis Amt Medium (34-66%) -Necrotic Tissue Type Adherent Slough -Texture (Dagmar-wound Skin Appearance) Assessed, Scarring -Moisture (Dagmar-wound Skin Appearance Assessed,Dry/ ) Scaly -Color (Dagmar-wound Skin Appearance) Assessed -Temperature (Dagmar-wound Skin No Abnormality Appearance) (Pt Warm) -Tenderness on Palpation (Dagmar-wound No Skin Appearance) -Ulcer Cleansing Rinsed/ Irrigated with Saline -Foul Odor after Cleansing No -Anesthetic Used 5% Lidocaine Gel [Edema Assessment] -Lower Limb Edema Present Yes -Right Calf (cm) 51.5 -Right Ankle (cm) 29.8 - Nurse 2 - General Ulcer CM Notes Start: 05/31/19 14:49 Freq: Status: Active Protocol: Activity Type Activity Date Activity User E-Sign Co-Sign Detail Recorded Client Recorded Date Recorded By Document 06/18/19 15:50 [id number] 06/18/19 15:51 06/18/19 15:50 Wound Center Nurse 2 [Procedure/Treatment] #1- R LUIS CLUSTER -Time 15:50 -Correct Patient Yes -Correct Side, Site, Position Yes -Correct Procedure Yes -Procedure Performed Yes -Type of Procedure Debridement -Clinical Debridement Subcutaneous -Post Debridement Size (cm) - Length 2.7 -Post Debridement Size (cm) - Width 2.3 -Post Debridement Size (cm) - Depth 0.2 -Total Square Cm 6.21 -Wound/Ulcer Outcome Not Healed -Ulcer Cleansing Rinsed/ Irrigated with Saline -Foul Odor after Cleansing No -Bioengineered Tissue No -Bleeding Controlled with Pressure -Offloading No -Treatment Response Procedure Tolerated Well [See Physician Procedure note for Specifics] Pain Scale: 0-10 Numeric [Pain] -Is Patient Pain Free? Yes Musculoskeletal: No Muscle Wasting Neurological: Neuro grossly intact Psych/Mental Status: Normal Affect, Appropriate Debridement Note Post-Debridement Measurements/Treatment - Nurse 2 - General Ulcer CM Notes Start: 05/31/19 14:49 Freq: Status: Active Protocol: Activity Type Activity Date Activity User E-Sign Co-Sign Detail Recorded Client Recorded Date Recorded By Document 06/05/19 15:34 [id number] 06/05/19 15:40 Document 06/18/19 15:50 [id number] 06/18/19 15:51 06/05/19 06/18/19 15:34 15:50 Wound Center Nurse 2 #1- R LUIS CLUSTER -Time 15:35 15:50 -Correct Patient Yes Yes -Correct Side, Site, Position Yes Yes -Correct Procedure Yes Yes -Procedure Performed Yes Yes -Type of Procedure Debridement Debridement -Clinical Debridement Subcutaneous Subcutaneous -Post Debridement Size (cm) - Length 2.7 2.7 -Post Debridement Size (cm) - Width 2.0 2.3 -Post Debridement Size (cm) - Depth 0.3 0.2 -Total Square Cm 5.40 6.21 -Wound/Ulcer Outcome Not Healed Not Healed -Ulcer Cleansing Rinsed/ Rinsed/ Irrigated with Irrigated with Saline Saline -Foul Odor after Cleansing No No -Bioengineered Tissue No No -Bleeding Controlled with Pressure Pressure -Offloading No No -Treatment Response Procedure Procedure Tolerated Well Tolerated Well Pain Scale: 0-10 Numeric Is Patient Pain Free? Yes Yes Wound debrided: anterior lower leg cluster Laterality: Right Type of Debridement: Excisional debridement Anesthesia Used: 5% Lidocaine Gel Depth: Down to and including healthy tissue, in the subcutaneous layer Percentage of wound debrided: 100 Instrument Used: 3mm curette Tissue Removed: subcutaneous tissue and slough Severity: Fat Layer Exposed Amount of bleeding with debridement: Mild Bleeding Controlled with: Pressure Patient tolerated procedure well Assessment/Plan Assessment: 1. Ulcer right lower leg. 2. Bilateral lower leg edema. 3. Chronic anticoagulation Plan: Patient was evaluated today at the wound healing center. A subcutaneous debridement was performed and patient tolerated it well. Patient has an ulcer on his right lower leg. Patient was placed on Bactrim by his PCP which he finished. He continues to have a significant amount of edema with the double layer tubigrip. Wound care: He continues to have significant amount of edema of lower legs bilaterally. He had 3M double layer wraps on but he states after 3 days they become painful and constricting. Will place silver on the ulcer and place 3M two layer wraps. He is to keep this on for as long as he can tolerate (most likely 2-4 days). He will then take off the 3M wraps and start using daily santyl to the ulcer and start using double layer tubigrips. Hopefully the 3M wraps will have decreased some of the swelling in his leg before placing the tubigrips. 05/31/19 he had vascular studies. Arterial studies which showed right SHAGGY=1.14, left SHAGGY= 1.1. There is no evidence of significant arterial occlusive disease in the lower extremities bilaterally. Venous duplex ultrasound showed the right sapheno-femoral junction is incompetent. Segmental valvular incompetence is noted within the great saphenous veins bilaterally. Small saphenous veins are patent and incompetent bilaterally. An incompetent accessory saphenous vein is noted in the right proximal thigh. An incompetent accessory saphenous vein is noted below the right knee. An incompetent accessory saphenous vein is noted below the left knee. We will refer him to Dr. Moran for further evaluation. Instructed him on the importance of elevating his legs bilaterally, multiple times a day. Instructed him that walking is good but he should try to avoid standing for long periods of time or letting his legs hanging dependently. Follow up 1 week. Code Visit [id number]: [id number] Ivett subq tissue 20 sq cm/<
== END 2019-06-19 23:59 ==
LOC: WC 15:30
PROVIDERS: Family Provider Internal Medicine; PCP Internal Medicine; Visit Provider Nurse Practitioner Family
DX: L97.812 Non-pressure chronic ulcer of other part of right lower leg with fat layer exposed (principal); R60.0 Localized edema; Z86.718 Personal history of other venous thrombosis and embolism; Z86.711 Personal history of pulmonary embolism; Z79.01 Long term (current) use of anticoagulants
CPT/HCPCS: 11042; 29581; 99212; G0463

== ENCOUNTER 2019-07-16 15:00 | Outpatient (RCR) | payer BC, SELFPAY ==
[2019-06-20 00:56] VITALS: BP 117/79; PULSE 82; RESP 16; TEMP 37
[2019-06-25 15:04] VITALS: BP 150/82; PULSE 82; RESP 16; TEMP 36.6; BMI 91.4
--- NOTE | 2019-06-25 15:55 | PCM.WC.PN ---
(1) Ulcer of right lower leg Status: Chronic Current Visit: Yes Code(s): L97.919 - Non-pressure chronic ulcer of unspecified part of right lower leg with unspecified severity (2) Bilateral edema of lower extremity Status: Chronic Current Visit: Yes Code(s): R60.0 - Localized edema (3) Venous ulcer-leg syndrome, right Status: Chronic Current Visit: Yes Code(s): L97.919 - Non-pressure chronic ulcer of unspecified part of right lower leg with unspecified severity (4) Chronic anticoagulation Status: Chronic Current Visit: Yes Code(s): Z79.01 - group home (current) use of anticoagulants Type of Wound Date of Service: 06/25/19 Chief Complaint: Opened area on right lower leg. History of Wound: Patient was working in his garage in the fall when he bumped his leg that created an opened area. He went to his PCP when it wasn't healed. PCP started him on Bactrim and Silvadene cream. He has a history of bilateral leg edema. He has worn compression in the past, but has not been wearing it lately. 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 He continues to have significant amount of edema of lower legs bilaterally. He had 3M double layer wraps on but he states after 3 days they become painful and constricting. Will place silver on the ulcer and place 3M two layer wraps. He is to keep this on for as long as he can tolerate (most likely 2-4 days). He will then take off the 3M wraps and start using daily santyl to the ulcer and start using double layer tubigrips. Hopefully the 3M wraps will have decreased some of the swelling in his leg before placing the tubigrips. On 05/31/19 he had vascular studies. Arterial studies which showed right SHAGGY=1.14, left SHAGGY= 1.1. There is no evidence of significant arterial occlusive disease in the lower extremities bilaterally. Venous duplex ultrasound showed the right sapheno-femoral junction is incompetent. Segmental valvular incompetence is noted within the great saphenous veins bilaterally. Small saphenous veins are patent and incompetent bilaterally. An incompetent accessory saphenous vein is noted in the right proximal thigh. An incompetent accessory saphenous vein is noted below the right knee. An incompetent accessory saphenous vein is noted below the left knee. We will refer him to Dr. Moran for further evaluation. Instructed him on the importance of elevating his legs bilaterally, multiple times a day. Instructed him that walking is good but he should try to avoid standing for long periods of time or letting his legs hanging dependently. He denies fevers. He state he has a good appetite. Progress of Wound: Stable - Physical Exam Vital Signs Temp Pulse Resp BP 97.9 F 82 16 150/82 H 06/25/19 15:04 06/25/19 15:04 06/25/19 15:04 06/25/19 15:04 General: Alert, Oriented x3, Cooperative HEENT: Atraumatic Oral: Moist Mucosa Lungs: Normal air movement Cardiovascular: Regular rate Abdomen: Soft, Obese Extremities: Capillary Refill Less than 3 Seconds, Diminished Peripheral Pulses, Edema Skin: Ulcer/ Wound - right anterior lower leg cluster Wound Measurements and Assessment WC - Nurse 1 - General Ulcer Measurement Start: 06/25/19 15:04 Freq: Status: Active Protocol: Activity Type Activity Date Activity User E-Sign Co-Sign Detail Recorded Client Recorded Date Recorded By Document 06/25/19 15:04 MW [id number] 06/25/19 15:14 MW 06/25/19 15:04 Wound Center Nurse 1 [Ulcer Assessment] #1- R LUIS CLUSTER -Combined with other wound No -Current Size (cm) - Length 2.7 -Current Size (cm) - Width 2.5 -Current Size (cm) - Depth 0.1 -Total Square Cm 6.75 -Photo Taken No -Epithelialization Small 1-33% -Tunneling No -Undermining/Tunneling No -Circular Undermining No -Exudate Amt Small -Exudate Type Serosanguineous -Wound Margin Flat & Intact -Granulation Amt Large (67-100%) -Granulation Quality Red -Slough/Fibrin Yes -Necrosis Amt Small (1-33%) -Necrotic Tissue Type Adherent Slough -Structure Exposed N/A -Texture (Dagmar-wound Skin Appearance) Assessed, Localized Edema -Moisture (Dagmar-wound Skin Appearance No Abnormality, ) Assessed -Color (Dagmar-wound Skin Appearance) Assessed, Hemosiderin Staining -Temperature (Dagmar-wound Skin No Abnormality Appearance) (Pt Warm) -Ulcer Cleansing soap and water -Foul Odor after Cleansing No -Anesthetic Used 5% Lidocaine Gel [Edema Assessment] -Lower Limb Edema Present Yes -Right Calf (cm) 49.0 -Right Ankle (cm) 29.5 - Nurse 2 - General Ulcer CM Notes Start: 06/25/19 15:04 Freq: Status: Active Protocol: Activity Type Activity Date Activity User E-Sign Co-Sign Detail Recorded Client Recorded Date Recorded By Document 06/25/19 15:21 [id number] 06/25/19 15:24 JF 06/25/19 15:21 Wound Center Nurse 2 [Procedure/Treatment] #1- R LUIS CLUSTER -Time 15:21 -Correct Patient Yes -Correct Side, Site, Position Yes -Correct Procedure Yes -Procedure Performed Yes -Type of Procedure Debridement -Clinical Debridement Subcutaneous -Post Debridement Size (cm) - Length 2.5 -Post Debridement Size (cm) - Width 2.5 -Post Debridement Size (cm) - Depth 0.2 -Total Square Cm 6.25 -Wound/Ulcer Outcome Not Healed -Ulcer Cleansing Rinsed/ Irrigated with Saline -Foul Odor after Cleansing No -Bioengineered Tissue No -Bleeding Controlled with Pressure -Offloading No -Treatment Response Procedure Tolerated Well [See Physician Procedure note for Specifics] Pain Scale: 0-10 Numeric [Pain] -Is Patient Pain Free? Yes Musculoskeletal: No Muscle Wasting Neurological: Neuro grossly intact Psych/Mental Status: Normal Affect, Appropriate Debridement Note Post-Debridement Measurements/Treatment - Nurse 2 - General Ulcer CM Notes Start: 06/25/19 15:04 Freq: Status: Active Protocol: Activity Type Activity Date Activity User E-Sign Co-Sign Detail Recorded Client Recorded Date Recorded By Document 06/25/19 15:21 [id number] 06/25/19 15:24 06/25/19 15:21 Wound Center Nurse 2 #1- R LUIS CLUSTER -Time 15:21 -Correct Patient Yes -Correct Side, Site, Position Yes -Correct Procedure Yes -Procedure Performed Yes -Type of Procedure Debridement -Clinical Debridement Subcutaneous -Post Debridement Size (cm) - Length 2.5 -Post Debridement Size (cm) - Width 2.5 -Post Debridement Size (cm) - Depth 0.2 -Total Square Cm 6.25 -Wound/Ulcer Outcome Not Healed -Ulcer Cleansing Rinsed/ Irrigated with Saline -Foul Odor after Cleansing No -Bioengineered Tissue No -Bleeding Controlled with Pressure -Offloading No -Treatment Response Procedure Tolerated Well Pain Scale: 0-10 Numeric Is Patient Pain Free? Yes Wound debrided: anterior leg cluster Laterality: Right Type of Debridement: Excisional debridement Anesthesia Used: 5% Lidocaine Gel Depth: Down to and including healthy tissue, in the subcutaneous layer Percentage of wound debrided: 100 Instrument Used: 3mm curette Tissue Removed: subcutaneous tissue and slough Severity: Limited To Skin Breakdown Amount of bleeding with debridement: Mild Bleeding Controlled with: Pressure Patient tolerated procedure well The wound base is starting to have a beefy pink color to it. Assessment/Plan Active Problems Ulcer of right lower leg (Chronic) Bilateral edema of lower extremity (Chronic) Chronic anticoagulation (Chronic) Venous ulcer-leg syndrome, right (Chronic) Assessment: 1. Ulcer right lower leg. 2. Bilateral lower leg edema. 3. Chronic anticoagulation Plan: Patient was evaluated today at the wound healing center. A subcutaneous debridement was performed and patient tolerated it fairly well. It is very painful for the patient to have his lower leg touched and debrided. Patient has an ulcer cluster on his right lower leg. Patient was placed on Bactrim by his PCP which he finished. He continues to have a significant amount of edema with the double layer tubigrip. Wound care: He continues to have significant amount of edema of lower legs bilaterally. He had 3M double layer wraps on but he states after 3 days they become painful and constricting. Will place silver on the ulcer and place 3M two layer wraps. He is to keep this on for as long as he can tolerate (most likely 2-4 days). He will then take off the 3M wraps and start using daily santyl to the ulcer and start using double layer tubigrips. Hopefully the 3M wraps will have decreased some of the swelling in his leg before placing the tubigrips. 05/31/19 he had vascular studies. Arterial studies which showed right SHAGGY=1.14, left SHAGGY= 1.1. There is no evidence of significant arterial occlusive disease in the lower extremities bilaterally. Venous duplex ultrasound showed the right sapheno-femoral junction is incompetent. Segmental valvular incompetence is noted within the great saphenous veins bilaterally. Small saphenous veins are patent and incompetent bilaterally. An incompetent accessory saphenous vein is noted in the right proximal thigh. An incompetent accessory saphenous vein is noted below the right knee. An incompetent accessory saphenous vein is noted below the left knee. He has an appointment with Dr. Moran on 07/05/19. Instructed him on the importance of elevating his legs bilaterally, multiple times a day. Instructed him that walking is good but he should try to avoid standing for long periods of time or letting his legs hanging dependently. 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 Follow up 1 week. Code Visit 111xxx-113xx: [id number] Ivett subq tissue 20 sq cm/<
[2019-07-02 14:17] VITALS: BP 134/79; PULSE 81; RESP 18; BMI 91.4
--- NOTE | 2019-07-02 15:27 | PN.PCM_ITS ---
(1) Ulcer of right lower leg Status: Chronic Current Visit: Yes Code(s): L97.919 - Non-pressure chronic ulcer of unspecified part of right lower leg with unspecified severity (2) Bilateral edema of lower extremity Status: Chronic Current Visit: Yes Code(s): R60.0 - Localized edema (3) Venous ulcer-leg syndrome, right Status: Chronic Current Visit: Yes Code(s): L97.919 - Non-pressure chronic ulcer of unspecified part of right lower leg with unspecified severity (4) Chronic anticoagulation Status: Chronic Current Visit: Yes Code(s): Z79.01 - [facility] (current) use of anticoagulants Type of Wound Date of Service: 07/02/19 Chief Complaint: Opened area on right lower leg. History of Wound: Patient was working in his garage in the fall when he bumped his leg that created an opened area. He went to his PCP when it wasn't healed. PCP started him on Bactrim and Silvadene cream. He has a history of bilateral leg edema. He has worn compression in the past, but has not been wearing it lately. 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 He continues to have significant amount of edema of lower legs bilaterally. He had 3M double layer wraps on but he states after 3 days they become painful and constricting. Wound care is Santyl daily and double layer tubigrip for compression. The Santyl has done a good job helping with the wound bed. he would benefit from an advanced wound healing product such as Epifix to help with his wound healing. Will apply to his insurance for approval. On 05/31/19 he had vascular studies. Arterial studies which showed right SHAGGY=1.14, left SHAGGY= 1.1. There is no evidence of significant arterial occlusive disease in the lower extremities bilaterally. Venous duplex ultrasound showed the right sapheno-femoral junction is incompetent. Segmental valvular incompetence is noted within the great saphenous veins bilaterally. Small saphenous veins are patent and incompetent bilaterally. An incompetent accessory saphenous vein is noted in the right proximal thigh. An incompetent accessory saphenous vein is noted below the right knee. An incompetent accessory saphenous vein is noted below the left knee. He sees Dr. Moran for his referral on Tuesday. Instructed him on the importance of elevating his legs bilaterally, multiple times a day. Instructed him that walking is good but he should try to avoid standing for long periods of time or letting his legs hanging dependently. He denies fevers. He state he has a good appetite. Progress of Wound: Improved. The wound base is now has more beefy pink color. - Physical Exam Vital Signs Temp Pulse Resp BP 97.9 F 81 18 134/79 H 06/25/19 15:04 07/02/19 14:17 07/02/19 14:17 07/02/19 14:17 General: Alert, Oriented x3, Cooperative HEENT: Atraumatic Oral: Moist Mucosa Lungs: Normal air movement Cardiovascular: Regular rate Extremities: Capillary Refill Less than 3 Seconds, Diminished Peripheral Pulses, Edema Skin: Ulcer/ Wound - Right anterior leg with two open areas in a cluster Wound Measurements and Assessment WC - Nurse 1 - General Ulcer Measurement Start: 06/25/19 15:04 Freq: Status: Active Protocol: Activity Type Activity Date Activity User E-Sign Co-Sign Detail Recorded Client Recorded Date Recorded By Document 07/02/19 14:17 [id number] 07/02/19 14:20 BS 07/02/19 14:17 Wound Center Nurse 1 [Ulcer Assessment] #1- R LUIS CLUSTER -Combined with other wound No -Current Size (cm) - Length 2 -Current Size (cm) - Width 2.4 -Current Size (cm) - Depth 0.1 -Total Square Cm 4.8 -Moisture (Dagmar-wound Skin Appearance Assessed,Dry/ ) Scaly -Temperature (Dagmar-wound Skin No Abnormality Appearance) (Pt Warm) -Tenderness on Palpation (Dagmar-wound Yes Skin Appearance) -Ulcer Cleansing Rinsed/ Irrigated with Saline -Foul Odor after Cleansing No -Anesthetic Used 4% Lidocaine Solution WC - Nurse 2 - General Ulcer CM Notes Start: 06/25/19 15:04 Freq: Status: Active Protocol: Activity Type Activity Date Activity User E-Sign Co-Sign Detail Recorded Client Recorded Date Recorded By Document 07/02/19 14:44 [email or web address] [id number] 07/02/19 14:46 JF 07/02/19 14:44 Wound Center Nurse 2 [Procedure/Treatment] -Time 14:45 -Correct Patient Yes -Correct Side, Site, Position Yes -Correct Procedure Yes -Procedure Performed Yes -Type of Procedure Debridement -Clinical Debridement Subcutaneous -Post Debridement Size (cm) - Length 2.4 -Post Debridement Size (cm) - Width 2.7 -Post Debridement Size (cm) - Depth 0.2 -Total Square Cm 6.48 -Wound/Ulcer Outcome Not Healed -Ulcer Cleansing Rinsed/ Irrigated with Saline -Foul Odor after Cleansing No -Bioengineered Tissue No -Bleeding Controlled with Pressure -Offloading No -Treatment Response Procedure Tolerated Well [See Physician Procedure note for Specifics] Pain Scale: 0-10 Numeric [Pain] -Is Patient Pain Free? Yes Musculoskeletal: No Muscle Wasting Neurological: Neuro grossly intact Psych/Mental Status: Normal Affect, Appropriate Debridement Note Post-Debridement Measurements/Treatment WC - Nurse 2 - General Ulcer CM Notes Start: 06/25/19 15:04 Freq: Status: Active Protocol: Activity Type Activity Date Activity User E-Sign Co-Sign Detail Recorded Client Recorded Date Recorded By Document 06/25/19 15:21 [id number] 06/25/19 15:24 Document 07/02/19 14:44 [id number] 07/02/19 14:46 06/25/19 07/02/19 15:21 14:44 Wound Center Nurse 2 #1- R LUIS CLUSTER -Time 15:21 14:45 -Correct Patient Yes Yes -Correct Side, Site, Position Yes Yes -Correct Procedure Yes Yes -Procedure Performed Yes Yes -Type of Procedure Debridement Debridement -Clinical Debridement Subcutaneous Subcutaneous -Post Debridement Size (cm) - Length 2.5 2.4 -Post Debridement Size (cm) - Width 2.5 2.7 -Post Debridement Size (cm) - Depth 0.2 0.2 -Total Square Cm 6.25 6.48 -Wound/Ulcer Outcome Not Healed Not Healed -Ulcer Cleansing Rinsed/ Rinsed/ Irrigated with Irrigated with Saline Saline -Foul Odor after Cleansing No No -Bioengineered Tissue No No -Bleeding Controlled with Pressure Pressure -Offloading No No -Treatment Response Procedure Procedure Tolerated Well Tolerated Well Pain Scale: 0-10 Numeric Is Patient Pain Free? Yes Yes Wound debrided: anterior leg ulcer cluster Laterality: Right Type of Debridement: Excisional debridement Anesthesia Used: 5% Lidocaine Gel Depth: Down to and including healthy tissue, in the subcutaneous layer Percentage of wound debrided: 100 Instrument Used: 3mm curette Tissue Removed: Subcutaneous tissue and slough Severity: Fat Layer Exposed Amount of bleeding with debridement: Mild Bleeding Controlled with: Pressure Patient tolerated procedure well Assessment/Plan Active Problems Ulcer of right lower leg (Chronic) Bilateral edema of lower extremity (Chronic) Chronic anticoagulation (Chronic) Venous ulcer-leg syndrome, right (Chronic) Assessment: 1. Ulcer right lower leg. 2. Bilateral lower leg edema. 3. Chronic anticoagulation Plan: Patient was evaluated today at the wound healing center. A subcutaneous debridement was performed and patient tolerated it fairly well. It is very painful for the patient to have his lower leg touched and debrided. Patient has an ulcer cluster on his right lower leg. Patient was placed on Bactrim by his PCP which he finished. He continues to have a significant amount of edema with the double layer tubigrip. Wound care: Last week he had 3M double layer wrap with silver on the ulcer for 5 days before he took it off because the 3M started to fall off. He states his swelling improved, but as soon as he goes back to work and stands all day the swelling starts up again. Wound care this week will be Santyl daily with double layer tubigrip for compression. He would benefit from an advanced wound healing product such as Epifix to help expidite the closer of this ulcer. Will apply to his insurance for approval. He meets with Dr. Moran on for his vascular evaluation. 05/31/19 he had vascular studies. Arterial studies which showed right SHAGGY=1.14, left SHAGGY= 1.1. There is no evidence of significant arterial occlusive disease in the lower extremities bilaterally. Venous duplex ultrasound showed the right sapheno-femoral junction is incompetent. Segmental valvular incompetence is noted within the great saphenous veins bilaterally. Small saphenous veins are patent and incompetent bilaterally. An incompetent accessory saphenous vein is noted in the right proximal thigh. An incompetent accessory saphenous vein is noted below the right knee. An incompetent accessory saphenous vein is noted below the left knee. Instructed him on the importance of elevating his legs bilaterally, multiple times a day. Instructed him that walking is good but he should try to avoid standing for long periods of time or letting his legs hanging dependently. 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 Follow up 1 week. Code Visit 111xxx-[id number]: [id number] Ivett subq tissue 20 sq cm/<
[2019-07-16 15:08] VITALS: BP 135/80; PULSE 84; RESP 16; TEMP 36.7; BMI 91.4
--- NOTE | 2019-07-16 16:27 | PCM.WC.PN ---
(1) Ulcer of right lower leg Status: Chronic Current Visit: Yes Code(s): L97.919 - Non-pressure chronic ulcer of unspecified part of right lower leg with unspecified severity (2) Bilateral edema of lower extremity Status: Chronic Current Visit: Yes Code(s): R60.0 - Localized edema (3) Venous ulcer-leg syndrome, right Status: Chronic Current Visit: Yes Code(s): L97.919 - Non-pressure chronic ulcer of unspecified part of right lower leg with unspecified severity (4) Chronic anticoagulation Status: Chronic Current Visit: Yes Code(s): Z79.01 - correction (current) use of anticoagulants Type of Wound Date of Service: 07/16/19 Chief Complaint: Opened area on right lower leg. History of Wound: Patient was working in his garage in the fall when he bumped his leg that created an opened area. He went to his PCP when it wasn't healed. PCP started him on Bactrim and Silvadene cream. He has a history of bilateral leg edema. He has worn compression in the past, but has not been wearing it lately. 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 He continues to have significant amount of edema of lower legs bilaterally. He had 3M double layer wraps on but he states after 3 days they become painful and constricting. Wound care is Santyl daily and double layer tubigrip for compression. The Santyl has done a good job helping with the wound bed. he would benefit from an advanced wound healing product such as Epifix to help with his wound healing, but can not afford the copayments on the product. On 05/31/19 he had vascular studies. Arterial studies which showed right SHAGGY=1.14, left SHAGGY= 1.1. There is no evidence of significant arterial occlusive disease in the lower extremities bilaterally. Venous duplex ultrasound showed the right sapheno-femoral junction is incompetent. Segmental valvular incompetence is noted within the great saphenous veins bilaterally. Small saphenous veins are patent and incompetent bilaterally. An incompetent accessory saphenous vein is noted in the right proximal thigh. An incompetent accessory saphenous vein is noted below the right knee. An incompetent accessory saphenous vein is noted below the left knee. He saw Dr. Moran last week and was told he needs to have surgery bilaterally, but they will start with the right leg. Discussed importance of compression. He states he has compression stockings at home that are new. He will bring them in next week for us to check the size. Instructed him on the importance of elevating his legs bilaterally, multiple times a day. Instructed him that walking is good but he should try to avoid standing for long periods of time or letting his legs hanging dependently. He denies fevers. He state he has a good appetite. Progress of Wound: Improved. - Physical Exam Vital Signs Temp Pulse Resp BP 98.1 F 84 16 135/80 H 07/16/19 15:08 07/16/19 15:08 07/16/19 15:08 07/16/19 15:08 General: Alert, Oriented x3, Cooperative HEENT: Atraumatic Oral: Moist Mucosa Lungs: Normal air movement Cardiovascular: Regular rate Abdomen: Soft Extremities: Capillary Refill Less than 3 Seconds, Diminished Peripheral Pulses, Edema - +2-+3 with his double layer tubigrip. He just got off work, he states his edema is gone in the morning when he gets up then gets worse as the day progresses Skin: Ulcer/ Wound - right anterior leg cluster Wound Measurements and Assessment WC - Nurse 1 - General Ulcer Measurement Start: 06/25/19 15:04 Freq: Status: Active Protocol: Activity Type Activity Date Activity User E-Sign Co-Sign Detail Recorded Client Recorded Date Recorded By Document 07/16/19 15:08 MW [id number] 07/16/19 15:12 MW 07/16/19 15:08 Wound Center Nurse 1 [Ulcer Assessment] #1- R LUIS CLUSTER -Combined with other wound No -Current Size (cm) - Length 1.4 -Current Size (cm) - Width 0.6 -Current Size (cm) - Depth 0.1 -Total Square Cm 0.84 -Photo Taken No -Epithelialization None Present -Tunneling No -Undermining/Tunneling No -Circular Undermining No -Exudate Amt Small -Exudate Type Serosanguineous -Wound Margin Flat & Intact -Granulation Amt Large (67-100%) -Granulation Quality Red -Slough/Fibrin Yes -Necrosis Amt Small (1-33%) -Necrotic Tissue Type Adherent Slough -Structure Exposed N/A -Texture (Dagmar-wound Skin Appearance) Assessed, Localized Edema ,Scarring -Moisture (Dagmar-wound Skin Appearance No Abnormality, ) Assessed -Color (Dagmar-wound Skin Appearance) Assessed, Hemosiderin Staining -Temperature (Dagmar-wound Skin No Abnormality Appearance) (Pt Warm) -Tenderness on Palpation (Dagmar-wound No Skin Appearance) -Ulcer Cleansing Rinsed/ Irrigated with Saline -Foul Odor after Cleansing No -Anesthetic Used 5% Lidocaine Gel [Edema Assessment] -Lower Limb Edema Present Yes -Right Calf (cm) 50.0 -Right Ankle (cm) 29.5 - Nurse 2 - General Ulcer CM Notes Start: 06/25/19 15:04 Freq: Status: Active Protocol: Activity Type Activity Date Activity User E-Sign Co-Sign Detail Recorded Client Recorded Date Recorded By Document 07/16/19 15:20 [id number] 07/16/19 15:26 07/16/19 15:20 Wound Center Nurse 2 [Procedure/Treatment] #1- R LUIS CLUSTER -Time 15:23 -Correct Patient Yes -Correct Side, Site, Position Yes -Correct Procedure Yes -Procedure Performed Yes -Type of Procedure Debridement -Clinical Debridement Subcutaneous -Post Debridement Size (cm) - Length 2.0 -Post Debridement Size (cm) - Width 0.9 -Post Debridement Size (cm) - Depth 0.2 -Total Square Cm 1.80 -Wound/Ulcer Outcome Not Healed -Ulcer Cleansing Rinsed/ Irrigated with Saline -Foul Odor after Cleansing No -Bioengineered Tissue No -Bleeding Controlled with Pressure -Offloading No -Treatment Response Procedure Tolerated Well [See Physician Procedure note for Specifics] Pain Scale: 0-10 Numeric [Pain] -Is Patient Pain Free? Yes Musculoskeletal: No Muscle Wasting Neurological: Neuro grossly intact Psych/Mental Status: Normal Affect, Appropriate Debridement Note Post-Debridement Measurements/Treatment - Nurse 2 - General Ulcer CM Notes Start: 06/25/19 15:04 Freq: Status: Active Protocol: Activity Type Activity Date Activity User E-Sign Co-Sign Detail Recorded Client Recorded Date Recorded By Document 06/25/19 15:21 [id number] 06/25/19 15:24 Document 07/02/19 14:44 [id number] 07/02/19 14:46 Document 07/16/19 15:20 [id number] 07/16/19 15:26 06/25/19 07/02/19 07/16/19 15:21 14:44 15:20 Wound Center Nurse 2 #1- R LUIS CLUSTER -Time 15:21 14:45 15:23 -Correct Patient Yes Yes Yes -Correct Side, Site, Position Yes Yes Yes -Correct Procedure Yes Yes Yes -Procedure Performed Yes Yes Yes -Type of Procedure Debridement Debridement Debridement -Clinical Debridement Subcutaneous Subcutaneous Subcutaneous -Post Debridement Size (cm) - Length 2.5 2.4 2.0 -Post Debridement Size (cm) - Width 2.5 2.7 0.9 -Post Debridement Size (cm) - Depth 0.2 0.2 0.2 -Total Square Cm 6.25 6.48 1.80 -Wound/Ulcer Outcome Not Healed Not Healed Not Healed -Ulcer Cleansing Rinsed/ Rinsed/ Rinsed/ Irrigated with Irrigated with Irrigated with Saline Saline Saline -Foul Odor after Cleansing No No No -Bioengineered Tissue No No No -Bleeding Controlled with Pressure Pressure Pressure -Offloading No No No -Treatment Response Procedure Procedure Procedure Tolerated Well Tolerated Well Tolerated Well Pain Scale: 0-10 Numeric Is Patient Pain Free? Yes Yes Yes Wound debrided: Anterior lower leg cluster Laterality: Right Type of Debridement: Excisional debridement Anesthesia Used: 5% Lidocaine Gel Depth: Down to and including healthy tissue, in the subcutaneous layer Percentage of wound debrided: 100 Instrument Used: 5mm curette Tissue Removed: Subcutaneous tissue and slough Severity: Fat Layer Exposed Amount of bleeding with debridement: Mild Bleeding Controlled with: Pressure Patient tolerated procedure well - Patient has a lot of pain with debridement. Assessment/Plan Active Problems Ulcer of right lower leg (Chronic) Bilateral edema of lower extremity (Chronic) Chronic anticoagulation (Chronic) Venous ulcer-leg syndrome, right (Chronic) Assessment: 1. Ulcer right lower leg. 2. Bilateral lower leg edema. 3. Chronic anticoagulation Plan: Patient was evaluated today at the wound healing center. A subcutaneous debridement was performed and patient tolerated it fairly well. It is very painful for the patient to have his lower leg touched and debrided. Patient has an ulcer cluster on his right lower leg. Patient was placed on Bactrim by his PCP which he finished. He continues to have a significant amount of edema with the double layer tubigrip. Wound care: is Santyl daily with double layer tubigrip and Jerrell wrap for compression. Recommended 3M double layer wrap for compression, but patient declined this week. He would benefit from an advanced wound healing product such as Epifix to help expidite the closer of this ulcer, but he cannot afford the co-pay. He saw Dr. Moran last week who is recommending surgery of bilateral lower legs will start on the right leg to help and improve perfusion. 05/31/19 he had vascular studies. Arterial studies which showed right SHAGGY=1.14, left SHAGGY= 1.1. There is no evidence of significant arterial occlusive disease in the lower extremities bilaterally. Venous duplex ultrasound showed the right sapheno-femoral junction is incompetent. Segmental valvular incompetence is noted within the great saphenous veins bilaterally. Small saphenous veins are patent and incompetent bilaterally. An incompetent accessory saphenous vein is noted in the right proximal thigh. An incompetent accessory saphenous vein is noted below the right knee. An incompetent accessory saphenous vein is noted below the left knee. Instructed him on the importance of elevating his legs bilaterally, multiple times a day. Instructed him that walking is good but he should try to avoid standing for long periods of time or letting his legs hanging dependently. 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 Follow up 1 week. Code Visit 111xxx-113xx: [id number] Ivett subq tissue 20 sq cm/<
== END 2019-07-20 23:59 ==
LOC: WC 15:00
PROVIDERS: Family Provider Internal Medicine; PCP Internal Medicine; Visit Provider Nurse Practitioner Family
DX: L97.812 Non-pressure chronic ulcer of other part of right lower leg with fat layer exposed (principal); L97.811 Non-pressure chronic ulcer of other part of right lower leg limited to breakdown of skin; R60.0 Localized edema; Z86.718 Personal history of other venous thrombosis and embolism; Z79.01 Long term (current) use of anticoagulants; Z86.711 Personal history of pulmonary embolism
CPT/HCPCS: 11042; 29581

== ENCOUNTER 2019-08-06 15:15 | Outpatient (RCR) | payer BC, SELFPAY ==
[2019-07-21 00:50] VITALS: BP 135/80; PULSE 84; RESP 16; TEMP 36.7
[2019-07-23 15:18] VITALS: BP 148/72; PULSE 84; RESP 18; TEMP 37.2; BMI 91.4
--- NOTE | 2019-07-23 15:53 | PCM.WC.PN ---
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 History of Wound: Patient was working in his garage in the fall when he bumped his leg that created an opened area. He went to his PCP when it wasn't healed. PCP started him on Bactrim and Silvadene cream. He has a history of bilateral leg edema. He has worn compression in the past, but has not been wearing it lately. 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 He continues to have significant amount of edema of lower legs bilaterally. He had 3M double layer wraps on but he states after 3 days they become painful and constricting. Wound care: will stop Santyl and start Silvercel daily. He has received Farrow wraps for compression. On 05/31/19 he had vascular studies. Arterial studies which showed right SHAGGY=1.14, left SHAGGY= 1.1. There is no evidence of significant arterial occlusive disease in the lower extremities bilaterally. Venous duplex ultrasound showed the right sapheno-femoral junction is incompetent. Segmental valvular incompetence is noted within the great saphenous veins bilaterally. Small saphenous veins are patent and incompetent bilaterally. An incompetent accessory saphenous vein is noted in the right proximal thigh. An incompetent accessory saphenous vein is noted below the right knee. An incompetent accessory saphenous vein is noted below the left knee. He saw Dr. Moran last week and was told he needs to have surgery bilaterally, but they will start with the right leg. Discussed importance of compression. He states he has compression stockings at home that are new. He will bring them in next week for us to check the size. Instructed him on the importance of elevating his legs bilaterally, multiple times a day. Instructed him that walking is good but he should try to avoid standing for long periods of time or letting his legs hanging dependently. He denies fevers. He state he has a good appetite. Progress of Wound: Improved. - Physical Exam Vital Signs Temp Pulse Resp BP 98.9 F 84 18 148/72 H 07/23/19 15:18 07/23/19 15:18 07/23/19 15:18 07/23/19 15:18 General: Alert, Oriented x3, Cooperative HEENT: Atraumatic Oral: Moist Mucosa Lungs: Normal air movement Cardiovascular: Regular rate Extremities: Capillary Refill Less than 3 Seconds, Diminished Peripheral Pulses, Edema - +3-+4 edema Skin: Ulcer/ Wound - Right anterior leg cluster. It appears a little macerated today Wound Measurements and Assessment WC - Nurse 1 - General Ulcer Measurement Start: 07/23/19 15:18 Freq: Status: Active Protocol: Activity Type Activity Date Activity User E-Sign Co-Sign Detail Recorded Client Recorded Date Recorded By Document 07/23/19 15:18 [id number] 07/23/19 15:19 07/23/19 15:18 Wound Center Nurse 1 [Ulcer Assessment] #1- R LUIS CLUSTER -Combined with other wound No -Current Size (cm) - Length 1.4 -Current Size (cm) - Width 0.3 -Current Size (cm) - Depth 0.1 -Total Square Cm 0.42 -Photo Taken No -Epithelialization Small 1-33% -Tunneling No -Undermining/Tunneling No -Circular Undermining No -Exudate Amt Small -Exudate Type Serosanguineous -Wound Margin Flat & Intact -Granulation Amt None Present (0 %) -Granulation Quality Peterman -Slough/Fibrin No -Necrosis Amt Small (1-33%) -Necrotic Tissue Type Adherent Slough -Structure Exposed N/A -Texture (Dagmar-wound Skin Appearance) Assessed, Localized Edema -Moisture (Dagmar-wound Skin Appearance Assessed,Dry/ ) Scaly -Color (Dagmar-wound Skin Appearance) Assessed, Hemosiderin Staining -Temperature (Dagmar-wound Skin No Abnormality Appearance) (Pt Warm) -Tenderness on Palpation (Dagmar-wound No Skin Appearance) -Ulcer Cleansing Rinsed/ Irrigated with Saline -Foul Odor after Cleansing No -Anesthetic Used 4% Lidocaine Solution [Edema Assessment] -Lower Limb Edema Present Yes -Right Calf (cm) 19.2 -Right Ankle (cm) 29.8 - Nurse 2 - General Ulcer CM Notes Start: 07/23/19 15:18 Freq: Status: Active Protocol: Activity Type Activity Date Activity User E-Sign Co-Sign Detail Recorded Client Recorded Date Recorded By Document 07/23/19 15:33 [id number] 07/23/19 15:34 07/23/19 15:33 Wound Center Nurse 2 [Procedure/Treatment] #1- R LUIS CLUSTER -Time 15:33 -Correct Patient Yes -Correct Side, Site, Position Yes -Correct Procedure Yes -Procedure Performed Yes -Type of Procedure Debridement -Clinical Debridement Subcutaneous -Post Debridement Size (cm) - Length 2.4 -Post Debridement Size (cm) - Width 1.9 -Post Debridement Size (cm) - Depth 0.2 -Total Square Cm 4.56 -Wound/Ulcer Outcome Not Healed -Ulcer Cleansing Rinsed/ Irrigated with Saline -Foul Odor after Cleansing No -Bioengineered Tissue No -Bleeding Controlled with Pressure -Offloading No -Treatment Response Procedure Tolerated Well [See Physician Procedure note for Specifics] Pain Scale: 0-10 Numeric [Pain] -Is Patient Pain Free? Yes Musculoskeletal: Tenderness Neurological: Neuro grossly intact Psych/Mental Status: Normal Affect, Appropriate Debridement Note Post-Debridement Measurements/Treatment - Nurse 2 - General Ulcer CM Notes Start: 07/23/19 15:18 Freq: Status: Active Protocol: Activity Type Activity Date Activity User E-Sign Co-Sign Detail Recorded Client Recorded Date Recorded By Document 07/23/19 15:33 [id number] 07/23/19 15:34 07/23/19 15:33 Wound Center Nurse 2 #1- R LUIS CLUSTER -Time 15:33 -Correct Patient Yes -Correct Side, Site, Position Yes -Correct Procedure Yes -Procedure Performed Yes -Type of Procedure Debridement -Clinical Debridement Subcutaneous -Post Debridement Size (cm) - Length 2.4 -Post Debridement Size (cm) - Width 1.9 -Post Debridement Size (cm) - Depth 0.2 -Total Square Cm 4.56 -Wound/Ulcer Outcome Not Healed -Ulcer Cleansing Rinsed/ Irrigated with Saline -Foul Odor after Cleansing No -Bioengineered Tissue No -Bleeding Controlled with Pressure -Offloading No -Treatment Response Procedure Tolerated Well Pain Scale: 0-10 Numeric Is Patient Pain Free? Yes Wound debrided: Anterior lower leg cluster Laterality: Right Type of Debridement: Excisional debridement Anesthesia Used: 4% Lidocaine Solution Depth: Down to and including healthy tissue, in the subcutaneous layer Percentage of wound debrided: 100 Instrument Used: 3mm curette Tissue Removed: Subcutaneous tissue and slough Severity: Limited To Skin Breakdown Amount of bleeding with debridement: Mild Bleeding Controlled with: Pressure Patient tolerated procedure well Assessment/Plan Active Problems Ulcer of right lower leg (Chronic) Bilateral edema of lower extremity (Chronic) Chronic anticoagulation (Chronic) Venous ulcer-leg syndrome, right (Chronic) Assessment: 1. Ulcer right lower leg. 2. Bilateral lower leg edema. 3. Chronic anticoagulation Plan: Patient was evaluated today at the wound healing center. A subcutaneous debridement was performed and patient tolerated it fairly well. It is very painful for the patient to have his lower leg debrided. Patient has an ulcer cluster on his right lower leg. Patient was placed on Bactrim by his PCP which he finished. He continues to have a significant amount of edema with the double layer tubigrip. Wound care: Stop Santyl and start Silvercell daily daily. He obtained Farrow wraps for his right lower leg for compression. Encourage elevating legs in the evening. He saw Dr. Moran the end of June, and he is recommending surgery of bilateral lower legs will start on the right leg to help and improve perfusion. 05/31/19 he had vascular studies. Arterial studies which showed right SHAGGY=1.14, left SHAGGY= 1.1. There is no evidence of significant arterial occlusive disease in the lower extremities bilaterally. Venous duplex ultrasound showed the right sapheno-femoral junction is incompetent. Segmental valvular incompetence is noted within the great saphenous veins bilaterally. Small saphenous veins are patent and incompetent bilaterally. An incompetent accessory saphenous vein is noted in the right proximal thigh. An incompetent accessory saphenous vein is noted below the right knee. An incompetent accessory saphenous vein is noted below the left knee. Instructed him on the importance of elevating his legs bilaterally, multiple times a day. Instructed him that walking is good but he should try to avoid standing for long periods of time or letting his legs hanging dependently. 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 Follow up 1 week. Code Visit 111xxx-113xx: [id number] Ivett subq tissue 20 sq cm/<
[2019-07-30 15:33] VITALS: BP 182/83; PULSE 74; RESP 18; TEMP 36.9; BMI 91.4
--- NOTE | 2019-07-30 16:33 | PN.PCM_ITS ---
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 History of Wound: Patient was working in his garage in the fall when he bumped his leg that created an opened area. He went to his PCP when it wasn't healed. PCP started him on Bactrim and Silvadene cream. He has a history of bilateral leg edema. He has worn compression in the past, but has not been wearing it lately. 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 He continues to have significant amount of edema of lower legs bilaterally. He had 3M double layer wraps on but he states after 3 days they become painful and constricting. Wound care: Continue Silvercel daily. He has received Farrow wraps for compression. On 05/31/19 he had vascular studies. Arterial studies which showed right SHAGGY=1.14, left SHAGGY= 1.1. There is no evidence of significant arterial occlusive disease in the lower extremities bilaterally. Venous duplex ultrasound showed the right sapheno-femoral junction is incompetent. Segmental valvular incompetence is noted within the great saphenous veins bilaterally. Small saphenous veins are patent and incompetent bilaterally. An incompetent accessory saphenous vein is noted in the right proximal thigh. An incompetent accessory saphenous vein is noted below the right knee. An incompetent accessory saphenous vein is noted below the left knee. He saw Dr. Moran last week and was told he needs to have surgery bilaterally, but they will start with the right leg. Discussed importance of compression. Instructed him on the importance of elevating his legs bilaterally, multiple times a day. Instructed him that walking is good but he should try to avoid standing for long periods of time or letting his legs hanging dependently. He denies fevers. He state he has a good appetite. Progress of Wound: Improved. - Physical Exam Vital Signs Temp Pulse Resp BP 98.4 F 74 18 182/83 H 07/30/19 15:33 07/30/19 15:33 07/30/19 15:33 07/30/19 15:33 General: Alert, Oriented x3, Cooperative HEENT: Atraumatic Oral: Moist Mucosa Lungs: Normal air movement Cardiovascular: Regular rate Abdomen: Bowel Sounds Present Extremities: Capillary Refill Less than 3 Seconds, Edema - He has +2 edema which is an improvement using his Farrow wrap compression stockings Skin: Ulcer/ Wound - right anterior lower leg, looking improved Wound Measurements and Assessment WC - Nurse 1 - General Ulcer Measurement Start: 07/23/19 15:18 Freq: Status: Active Protocol: Activity Type Activity Date Activity User E-Sign Co-Sign Detail Recorded Client Recorded Date Recorded By Document 07/30/19 15:33 BS [id number] 07/30/19 15:39 BS 07/30/19 15:33 Wound Center Nurse 1 [Ulcer Assessment] #1- R LUIS CLUSTER -Combined with other wound No -Current Size (cm) - Length 1.3 -Current Size (cm) - Width 0.3 -Current Size (cm) - Depth 0.1 -Total Square Cm 0.39 -Tenderness on Palpation (Dagmar-wound No Skin Appearance) -Ulcer Cleansing Rinsed/ Irrigated with Saline -Foul Odor after Cleansing No -Anesthetic Used 4% Lidocaine Solution - Nurse 2 - General Ulcer CM Notes Start: 07/23/19 15:18 Freq: Status: Active Protocol: Activity Type Activity Date Activity User E-Sign Co-Sign Detail Recorded Client Recorded Date Recorded By Document 07/30/19 16:04 SHALONDA [id number] 07/30/19 16:05 SHALONDA 07/30/19 16:04 Wound Center Nurse 2 [Procedure/Treatment] -Time 16:04 -Correct Patient Yes -Correct Side, Site, Position Yes -Correct Procedure Yes -Procedure Performed Yes -Type of Procedure Debridement -Clinical Debridement Subcutaneous -Post Debridement Size (cm) - Length 1.6 -Post Debridement Size (cm) - Width 0.5 -Post Debridement Size (cm) - Depth 0.2 -Total Square Cm 0.80 -Wound/Ulcer Outcome Not Healed -Ulcer Cleansing Rinsed/ Irrigated with Saline -Foul Odor after Cleansing No -Bioengineered Tissue No -Bleeding Controlled with Pressure -Offloading No -Treatment Response Procedure Tolerated Well [See Physician Procedure note for Specifics] Pain Scale: 0-10 Numeric [Pain] -Is Patient Pain Free? Yes Musculoskeletal: No Tenderness to Palpation of Joints or Extremities Neurological: Neuro grossly intact Psych/Mental Status: Normal Affect, Appropriate Debridement Note Post-Debridement Measurements/Treatment WC - Nurse 2 - General Ulcer CM Notes Start: 07/23/19 15:18 Freq: Status: Active Protocol: Activity Type Activity Date Activity User E-Sign Co-Sign Detail Recorded Client Recorded Date Recorded By Document 07/23/19 15:33 [id number] 07/23/19 15:34 Document 07/30/19 16:04 [id number] 07/30/19 16:05 07/23/19 07/30/19 15:33 16:04 Wound Center Nurse 2 #1- R LUIS CLUSTER -Time 15:33 16:04 -Correct Patient Yes Yes -Correct Side, Site, Position Yes Yes -Correct Procedure Yes Yes -Procedure Performed Yes Yes -Type of Procedure Debridement Debridement -Clinical Debridement Subcutaneous Subcutaneous -Post Debridement Size (cm) - Length 2.4 1.6 -Post Debridement Size (cm) - Width 1.9 0.5 -Post Debridement Size (cm) - Depth 0.2 0.2 -Total Square Cm 4.56 0.80 -Wound/Ulcer Outcome Not Healed Not Healed -Ulcer Cleansing Rinsed/ Rinsed/ Irrigated with Irrigated with Saline Saline -Foul Odor after Cleansing No No -Bioengineered Tissue No No -Bleeding Controlled with Pressure Pressure -Offloading No No -Treatment Response Procedure Procedure Tolerated Well Tolerated Well Pain Scale: 0-10 Numeric Is Patient Pain Free? Yes Yes Wound debrided: anterior lower leg Laterality: Right Type of Debridement: Excisional debridement Anesthesia Used: 5% Lidocaine Gel Depth: Down to and including healthy tissue, in the subcutaneous layer Percentage of wound debrided: 100 Instrument Used: 3mm curette Tissue Removed: Subcutaneous tissue and slough Severity: Limited To Skin Breakdown Amount of bleeding with debridement: Mild Bleeding Controlled with: Pressure Patient tolerated procedure well - Patient still has increased pain with debridment Assessment/Plan Active Problems Ulcer of right lower leg (Chronic) Bilateral edema of lower extremity (Chronic) Chronic anticoagulation (Chronic) Venous ulcer-leg syndrome, right (Chronic) Assessment: 1. Ulcer right lower leg. 2. Bilateral lower leg edema. 3. Chronic anticoagulation Plan: Patient was evaluated today at the wound healing center. A subcutaneous debridement was performed and patient tolerated it fairly well. It is painful for the patient to have his lower leg debrided. Patient has an ulcer cluster on his right lower leg but the one opened area has healed, so it is now a single opned area. Patient was placed on Bactrim by his PCP which he finished. He continues to have edema but is is slightly improved this week with using the Farrow wraps that he received for his right leg. Wound care: Moistened Silvercell daily daily. He obtained Farrow wraps for his right lower leg for compression which he is tolerating well. Encourage elevating legs in the evening. He saw Dr. Moran the end of June, and he is recommending surgery of bilateral lower legs will start on the right leg to help and improve perfusion. 05/31/19 he had vascular studies. Arterial studies which showed right SHAGGY=1.14, left SHAGGY= 1.1. There is no evidence of significant arterial occlusive disease in the lower extremities bilaterally. Venous duplex ultrasound showed the right sapheno-femoral junction is incompetent. Segmental valvular incompetence is noted within the great saphenous veins bilaterally. Small saphenous veins are patent and incompetent bilaterally. An incompetent accessory saphenous vein is noted in the right proximal thigh. An incompetent accessory saphenous vein is noted below the right knee. An incompetent acces mario saphenous vein is noted below the left knee. Instructed him on the importance of elevating his legs bilaterally, multiple times a day. Instructed him that walking is good but he should try to avoid standing for long periods of time or letting his legs hanging dependently. 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 Follow up 1 week. Code Visit [id number]: [id number] Ivett subq tissue 20 sq cm/<
[2019-08-06 15:21] VITALS: BP 153/95; PULSE 85; RESP 16; TEMP 36.4; BMI 91.4
--- NOTE | 2019-08-06 16:30 | PCM.WC.PN ---
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 History of Wound: Patient was working in his garage in the fall when he bumped his leg that created an opened area. He went to his PCP when it wasn't healed. PCP started him on Bactrim and Silvadene cream. He has a history of bilateral leg edema. He has worn compression in the past, but has not been wearing it lately. 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 He continues to have significant amount of edema of lower legs bilaterally. He had 3M double layer wraps on but he states after 3 days they become painful and constricting. Wound care: Continue moistened Silvercel daily. He has received Farrow wraps for compression, which has made an improvement in his edema. On 05/31/19 he had vascular studies. Arterial studies which showed right SHAGGY=1.14, left SHAGGY= 1.1. There is no evidence of significant arterial occlusive disease in the lower extremities bilaterally. Venous duplex ultrasound showed the right sapheno-femoral junction is incompetent. Segmental valvular incompetence is noted within the great saphenous veins bilaterally. Small saphenous veins are patent and incompetent bilaterally. An incompetent accessory saphenous vein is noted in the right proximal thigh. An incompetent accessory saphenous vein is noted below the right knee. An incompetent accessory saphenous vein is noted below the left knee. He saw Dr. Moran last week and was told he needs to have surgery bilaterally, but they will start with the right leg. Discussed importance of compression. Instructed him on the importance of elevating his legs bilaterally, multiple times a day. Instructed him that walking is good but he should try to avoid standing for long periods of time or letting his legs hanging dependently. He denies fevers. He state he has a good appetite. Progress of Wound: Improved. - Physical Exam Vital Signs Temp Pulse Resp BP 97.5 F L 85 16 153/95 H 08/06/19 15:21 08/06/19 15:21 08/06/19 15:21 08/06/19 15:21 General: Alert, Oriented x3, Cooperative HEENT: Atraumatic Oral: Moist Mucosa Lungs: Normal air movement Cardiovascular: Regular rate Extremities: Capillary Refill Less than 3 Seconds, Edema Skin: Ulcer/ Wound - right anterior lower leg ulcer Wound Measurements and Assessment WC - Nurse 1 - General Ulcer Measurement Start: 07/23/19 15:18 Freq: Status: Active Protocol: Activity Type Activity Date Activity User E-Sign Co-Sign Detail Recorded Client Recorded Date Recorded By Document 08/06/19 15:21 [facility] [id number] 08/06/19 15:28 [facility] 08/06/19 15:21 Wound Center Nurse 1 [Ulcer Assessment] #1- R LUIS CLUSTER -Combined with other wound No -Current Size (cm) - Length 0.2 -Current Size (cm) - Width 0.2 -Current Size (cm) - Depth 0.1 -Total Square Cm 0.04 -Photo Taken No -Epithelialization Large 67-100% -Tunneling No -Undermining/Tunneling No -Circular Undermining No -Exudate Amt Small -Exudate Type Serous -Wound Margin Flat & Intact -Granulation Amt Large (67-100%) -Granulation Quality Red -Slough/Fibrin No -Necrosis Amt None Present (0 %) -Texture (Dagmar-wound Skin Appearance) Assessed, Scarring -Moisture (Dagmar-wound Skin Appearance Assessed,Dry/ ) Scaly -Color (Dagmar-wound Skin Appearance) Assessed -Temperature (Dagmar-wound Skin No Abnormality Appearance) (Pt Warm) -Tenderness on Palpation (Dagmar-wound No Skin Appearance) -Ulcer Cleansing Rinsed/ Irrigated with Saline -Foul Odor after Cleansing No -Anesthetic Used 5% Lidocaine Gel [Edema Assessment] -Lower Limb Edema Present Yes -Right Calf (cm) 50 -Right Ankle (cm) 29.8 WC - Nurse 2 - General Ulcer CM Notes Start: 07/23/19 15:18 Freq: Status: Active Protocol: Activity Type Activity Date Activity User E-Sign Co-Sign Detail Recorded Client Recorded Date Recorded By Document 08/06/19 15:43 MW [id number] 08/06/19 15:46 MW 08/06/19 15:43 Wound Center Nurse 2 [Procedure/Treatment] #1- R LUIS CLUSTER -Time 15:44 -Correct Patient Yes -Correct Side, Site, Position Yes -Correct Procedure Yes -Procedure Performed Yes -Type of Procedure Debridement -Clinical Debridement Subcutaneous -Post Debridement Size (cm) - Length 1.2 -Post Debridement Size (cm) - Width 0.3 -Post Debridement Size (cm) - Depth 0.2 -Total Square Cm 0.36 -Wound/Ulcer Outcome Not Healed -Ulcer Cleansing Rinsed/ Irrigated with Saline -Foul Odor after Cleansing No -Bioengineered Tissue No -Bleeding Controlled with Pressure -Offloading No -Treatment Response Procedure Tolerated Well [See Physician Procedure note for Specifics] Pain Scale: 0-10 Numeric [Pain] -Is Patient Pain Free? Yes Musculoskeletal: No Tenderness to Palpation of Joints or Extremities Neurological: Neuro grossly intact Psych/Mental Status: Normal Affect, Appropriate Debridement Note Post-Debridement Measurements/Treatment WC - Nurse 2 - General Ulcer CM Notes Start: 07/23/19 15:18 Freq: Status: Active Protocol: Activity Type Activity Date Activity User E-Sign Co-Sign Detail Recorded Client Recorded Date Recorded By Document 07/23/19 15:33 [id number] 07/23/19 15:34 Document 07/30/19 16:04 [id number] 07/30/19 16:05 Document 08/06/19 15:43 MW [id number] 08/06/19 15:46 MW 07/23/19 07/30/19 08/06/19 15:33 16:04 15:43 Wound Center Nurse 2 #1- R LUIS CLUSTER -Time 15:33 16:04 15:44 -Correct Patient Yes Yes Yes -Correct Side, Site, Position Yes Yes Yes -Correct Procedure Yes Yes Yes -Procedure Performed Yes Yes Yes -Type of Procedure Debridement Debridement Debridement -Clinical Debridement Subcutaneous Subcutaneous Subcutaneous -Post Debridement Size (cm) - Length 2.4 1.6 1.2 -Post Debridement Size (cm) - Width 1.9 0.5 0.3 -Post Debridement Size (cm) - Depth 0.2 0.2 0.2 -Total Square Cm 4.56 0.80 0.36 -Wound/Ulcer Outcome Not Healed Not Healed Not Healed -Ulcer Cleansing Rinsed/ Rinsed/ Rinsed/ Irrigated with Irrigated with Irrigated with Saline Saline Saline -Foul Odor after Cleansing No No No -Bioengineered Tissue No No No -Bleeding Controlled with Pressure Pressure Pressure -Offloading No No No -Treatment Response Procedure Procedure Procedure Tolerated Well Tolerated Well Tolerated Well Pain Scale: 0-10 Numeric Is Patient Pain Free? Yes Yes Yes Wound debrided: anterior lower leg ulcer Laterality: Right Type of Debridement: Excisional debridement Anesthesia Used: 5% Lidocaine Gel Depth: Down to and including healthy tissue, in the subcutaneous layer Percentage of wound debrided: 100 Instrument Used: 3mm curette Tissue Removed: Subcutaneous tissue and slough Severity: Limited To Skin Breakdown Amount of bleeding with debridement: Mild Bleeding Controlled with: Pressure Patient tolerated procedure well - Patient tolerated the debridement but it was painful for him Assessment/Plan Assessment: 1. Ulcer right lower leg. 2. Bilateral lower leg edema. 3. Chronic anticoagulation Plan: Patient was evaluated today at the wound healing center. A subcutaneous debridement was performed and patient tolerated it fairly well. It is painful for the patient to have his lower leg debrided. Patient has an ulcer cluster on his right lower leg but the one opened area has healed, so it is now a single opned area. Patient was placed on Bactrim by his PCP which he finished. He continues to have edema but is is slightly improved this week with using the Farrow wraps that he received for his right leg. Wound care: Moistened Silvercell daily daily. He obtained Farrow wraps for his right lower leg for compression which he is tolerating well. Encourage elevating legs in the evening. He saw Dr. Moran the end of June, and he is recommending surgery of bilateral lower legs will start on the right leg to help and improve perfusion. He is waiting to hear back from Dr. Moran's office to find out when his surgery will be scheduled. 05/31/19 he had vascular studies. Arterial studies which showed right SHAGGY=1.14, left SHAGGY= 1.1. There is no evidence of significant arterial occlusive disease in the lower extremities bilaterally. Venous duplex ultrasound showed the right sapheno-femoral junction is incompetent. Segmental valvular incompetence is noted within the great saphenous veins bilaterally. Small saphenous veins are patent and incompetent bilaterally. An incompetent accessory saphenous vein is noted in the right proximal thigh. An incompetent accessory saphenous vein is noted below the right knee. An incompetent accessory saphenous vein is noted below the left knee. Instructed him on the importance of elevating his legs bilaterally, multiple times a day. Instructed him that walking is good but he should try to avoid standing for long periods of time or letting his legs hanging dependently. 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 Follow up 2 weeks. Code Visit 111xxx-[id number]: [id number] Ivett subq tissue 20 sq cm/<
== END 2019-08-18 23:59 ==
LOC: WC 15:15
PROVIDERS: Family Provider Internal Medicine; PCP Internal Medicine; Visit Provider Nurse Practitioner Family
DX: L97.811 Non-pressure chronic ulcer of other part of right lower leg limited to breakdown of skin (principal); R60.0 Localized edema; Z86.718 Personal history of other venous thrombosis and embolism; Z79.01 Long term (current) use of anticoagulants; Z86.711 Personal history of pulmonary embolism; Z91.81 History of falling
CPT/HCPCS: 11042

== ENCOUNTER 2019-08-20 12:23 | Outpatient (RCR) | payer BC, SELFPAY ==
[2019-08-19 00:38] VITALS: BP 153/95; PULSE 85; RESP 16; TEMP 36.4
[2019-08-20 15:44] VITALS: BP 127/47; PULSE 80; RESP 16; TEMP 37.1; BMI 91.4
--- NOTE | 2019-08-20 16:32 | PN.PCM_ITS ---
(1) Ulcer of right lower leg Status: Chronic Current Visit: Yes Code(s): L97.919 - Non-pressure chronic ulcer of unspecified part of right lower leg with unspecified severity (2) Bilateral edema of lower extremity Status: Chronic Current Visit: Yes Code(s): R60.0 - Localized edema (3) Venous ulcer-leg syndrome, right Status: Chronic Current Visit: Yes Code(s): L97.919 - Non-pressure chronic ulcer of unspecified part of right lower leg with unspecified severity Type of Wound Date of Service: 08/20/19 Chief Complaint: Opened area on right lower leg. History of Wound: Patient was working in his garage in the fall when he bumped his leg that created an opened area. He went to his PCP when it wasn't healed. PCP started him on Bactrim and Silvadene cream. He has a history of bilateral leg edema. He has worn compression in the past, but has not been wearing it lately. 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 He continues to have significant amount of edema of lower legs bilaterally. He had 3M double layer wraps on but he states after 3 days they become painful and constricting. Wound care: Continue moistened Silvercel daily. He has received Farrow wraps for compression, which has made an improvement in his edema. On 05/31/19 he had vascular studies. Arterial studies which showed right SHAGGY=1.14, left SHAGGY= 1.1. There is no evidence of significant arterial occlusive disease in the lower extremities bilaterally. Venous duplex ultrasound showed the right sapheno-femoral junction is incompetent. Segmental valvular incompetence is noted within the great saphenous veins bilaterally. Small saphenous veins are patent and incompetent bilaterally. An incompetent accessory saphenous vein is noted in the right proximal thigh. An incompetent accessory saphenous vein is noted below the right knee. An incompetent accessory saphenous vein is noted below the left knee. He has surgery on Tuesday with Dr. Moran on his right leg to start. Today he is healed. Discussed importance of continued compression. Instructed him on the importance of elevating his legs bilaterally, multiple times a day. Instructed him that walking is good but he should try to avoid standing for long periods of time or letting his legs hanging dependently. He denies fevers. He state he has a good appetite. Progress of Wound: He is healed today. - Physical Exam Vital Signs Temp Pulse Resp BP 98.7 F 80 16 127/47 H 08/20/19 15:44 08/20/19 15:44 08/20/19 15:44 08/20/19 15:44 General: Alert, Oriented x3, Cooperative HEENT: Atraumatic Oral: Moist Mucosa Lungs: Normal air movement Cardiovascular: Regular rate Extremities: Capillary Refill Less than 3 Seconds, No Calf Tenderness, Edema Skin: Ulcer/ Wound - right anterior leg ulcer is healed today. Wound Measurements and Assessment WC - Nurse 1 - General Ulcer Measurement Start: 08/20/19 15:44 Freq: Status: Active Protocol: Activity Type Activity Date Activity User E-Sign Co-Sign Detail Recorded Client Recorded Date Recorded By Document 08/20/19 15:44 MW [id number] 08/20/19 15:50 MW 08/20/19 15:44 Wound Center Nurse 1 [Ulcer Assessment] #1- R LUIS CLUSTER -Combined with other wound No -Current Size (cm) - Length 0.1 -Current Size (cm) - Width 0.1 -Current Size (cm) - Depth 0.1 -Total Square Cm 0.01 -Photo Taken No -Epithelialization Large 67-100% -Tunneling No -Undermining/Tunneling No -Circular Undermining No -Exudate Amt None Present -Wound Margin Flat & Intact -Granulation Amt None Present (0 %) -Granulation Quality N/A -Slough/Fibrin No -Necrosis Amt None Present (0 %) -Necrotic Tissue Type Adherent Slough -Structure Exposed N/A -Texture (Dagmar-wound Skin Appearance) Assessed, Localized Edema ,Scarring -Moisture (Dagmar-wound Skin Appearance No Abnormality, ) Assessed -Color (Dagmar-wound Skin Appearance) No Abnormality, Hemosiderin Staining -Temperature (Dagmar-wound Skin No Abnormality Appearance) (Pt Warm) -Tenderness on Palpation (Dagmar-wound No Skin Appearance) -Ulcer Cleansing Rinsed/ Irrigated with Saline -Foul Odor after Cleansing No [Edema Assessment] -Lower Limb Edema Present Yes -Right Calf (cm) 50.5 -Right Ankle (cm) 30.0 WC - Nurse 2 - General Ulcer CM Notes Start: 08/20/19 15:44 Freq: Status: Active Protocol: Activity Type Activity Date Activity User E-Sign Co-Sign Detail Recorded Client Recorded Date Recorded By Document 08/20/19 16:00 JF [id number] 08/20/19 16:01 08/20/19 16:00 Wound Center Nurse 2 [Procedure/Treatment] #1- R LUIS CLUSTER -Correct Patient No -Correct Side, Site, Position No -Correct Procedure No -Procedure Performed No -Post Debridement Size (cm) - Length 0 -Post Debridement Size (cm) - Width 0 -Post Debridement Size (cm) - Depth 0 -Total Square Cm 0 -Wound/Ulcer Outcome Healed- Epithelialized [See Physician Procedure note for Specifics] Pain Scale: 0-10 Numeric [Pain] -Is Patient Pain Free? Yes Musculoskeletal: No Tenderness to Palpation of Joints or Extremities Neurological: Neuro grossly intact Psych/Mental Status: Normal Affect, Appropriate Debridement Note Post-Debridement Measurements/Treatment - Nurse 2 - General Ulcer CM Notes Start: 08/20/19 15:44 Freq: Status: Active Protocol: Activity Type Activity Date Activity User E-Sign Co-Sign Detail Recorded Client Recorded Date Recorded By Document 08/20/19 16:00 JF [id number] 08/20/19 16:01 08/20/19 16:00 Wound Center Nurse 2 #1- R LUIS CLUSTER -Correct Patient No -Correct Side, Site, Position No -Correct Procedure No -Procedure Performed No -Post Debridement Size (cm) - Length 0 -Post Debridement Size (cm) - Width 0 -Post Debridement Size (cm) - Depth 0 -Total Square Cm 0 -Wound/Ulcer Outcome Healed- Epithelialized Pain Scale: 0-10 Numeric Is Patient Pain Free? Yes No debridement was completed today Assessment/Plan Active Problems Ulcer of right lower leg (Chronic) Bilateral edema of lower extremity (Chronic) Venous ulcer-leg syndrome, right (Chronic) Assessment: 1. Ulcer right lower leg. 2. Bilateral lower leg edema. 3. Chronic anticoagulation Plan: Patient was evaluated today at the wound healing center. His right anterior leg ulcer is healed today. Encouraged patient to continue compression and leg elevation. Will discharge him today from the wound healing center. He continues to have edema but he obtained Farrow wraps for his right lower leg for compression which he is tolerating well. Encourage elevating legs in the evening. He saw Dr. Moran the end of June, and he is recommending surgery of bilateral lower legs will start on the right leg to help and improve perfusion. Surgery is scheduled for Tuesday for his right leg. 05/31/19 he had vascular studies. Arterial studies which showed right SHAGGY=1.14, left SHAGGY= 1.1. There is no evidence of significant arterial occlusive disease in the lower extremities bilaterally. Venous duplex ultrasound showed the right sapheno-femoral junction is incompetent. Segmental valvular incompetence is noted within the great saphenous veins bilaterally. Small saphenous veins are patent and incompetent bilaterally. An incompetent accessory saphenous vein is noted in the right proximal thigh. An incompetent accessory saphenous vein is noted below the right knee. An incompetent accessory saphenous vein is noted below the left knee. Instructed him on the importance of elevating his legs bilaterally, multiple times a day. Instructed him that walking is good but he should try to avoid standing for long periods of time or letting his legs hanging dependently. 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 He will be discharged today. Follow up as needed. Code Visit Office Visits / Consults: 20613 OV L3 Est
== END 2019-09-18 23:59 ==
LOC: WC 12:23
PROVIDERS: Family Provider Internal Medicine; PCP Internal Medicine; Visit Provider Nurse Practitioner Family
DX: Z09 Encounter for follow-up examination after completed treatment for conditions other than malignant neoplasm (principal); I83.93 Asymptomatic varicose veins of bilateral lower extremities; R60.0 Localized edema; Z79.01 Long term (current) use of anticoagulants; Z86.718 Personal history of other venous thrombosis and embolism; Z86.711 Personal history of pulmonary embolism
CPT/HCPCS: 99213; G0463

== ENCOUNTER 2021-05-11 14:30 | Outpatient (RCR) | payer BC, SELFPAY ==
[2021-04-20 10:09] VITALS: BP 135/63; PULSE 75; TEMP 36.4
--- NOTE | 2021-04-20 12:45 | PCM.WC.HP ---
History of Present Illness Date of Service: 04/20/21 Chief Complaint: Left grider wounds. History of Wound: Patient was working in his garage in the fall when he bumped his leg that created several open areas. Patient bumped his left grider on a storage tote in his garage about 4 weeks ago. 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 He went to his PCP for evaluation. He was using left over silver alginate dressing from his last wound from early 2019. Wound wasn't improving so his PCP referred him to the wound center. He has a history of venous insufficiency. He has seen Dr. Moran in the past for some procedures to help with this issue. He has compression stockings that he has not been wearing over the summer because they are too warm. On 05/31/19 he had vascular studies. Arterial studies which showed right SHAGGY=1.14, left SHAGGY= 1.1. There is no evidence of significant arterial occlusive disease in the lower extremities bilaterally. Venous duplex ultrasound showed the right sapheno-femoral junction is incompetent. Segmental valvular incompetence is noted within the great saphenous veins bilaterally. Small saphenous veins are patent and incompetent bilaterally. An incompetent accessory saphenous vein is noted in the right proximal thigh. An incompetent accessory saphenous vein is noted below the right knee. An incompetent accessory saphenous vein is noted below the left knee. Wound care - Fibrocol covered by gauze daily. Tubigrip with JERRELL wrap over it for compression. Wound culture of ulcer obtained today, 04/20/21. He denies fevers. He states he has a good appetite. Progress of Wound: Left anterior leg ulcer is pink, tender to palpation. [facility] Home Medications Lactobacillus acidophilus 1 ea PO DAILY 05/08/19 [History Last Taken Unknown] cyanocobalamin (vitamin B-12) mcg PO DAILY@0800 05/08/19 [History Last Taken Unknown] furosemide 40 mg PO BID 05/08/19 [History Last Taken Unknown] multivitamin 1 ea PO DAILY 05/08/19 [History Last Taken Unknown] rivaroxaban 20 mg PO DAILY 05/08/19 [History Last Taken Unknown] atorvastatin 40 mg PO DAILY 04/20/21 [History Last Taken Unknown] lisinopril 10 mg PO DAILY 04/20/21 [History Last Taken Unknown] Allergy/AdvReac Type Severity Reaction Status Date / Time No Known Allergies Allergy Verified 05/08/19 15:34 Social History Smoking Status: Never smoker ROS Constitutional Constitutional: Denies fatigue or fever(s) ENT HEENT: Reports none Cardiovascular Cardiovascular: Reports none and edema Respiratory/Chest Respiratory/Chest: Reports none Gastrointestinal Gastrointestinal: Reports none Musculoskeletal Musculoskeletal: Reports none Integumentary Integumentary: Reports wounds Neurologic Neurologic: Reports none Psychiatric Psychiatric: Reports none Vital Signs Vital Signs Vital Signs: 04/20/21 10:09 Temperature 97.6 F L Temperature Source Temporal Pulse Rate 75 Blood Pressure 135/63 H Blood Pressure Mean 87 Blood Pressure Source Monitor Blood Pressure Position Semi-Fowlers Blood Pressure Location Right Arm Physical Exam Const alert, oriented x3 and no apparent distress General Appearance: cooperative HEENT normocephalic Eyes PERRL Neck full ROM Resp normal respiratory effort and normal air movement Cardio regular rate and regular rhythm GI normal to inspection, nondistended, normoactive bowel sounds, soft to palpation and non-tender Back/Spine normal ROM Extremity normal capillary refill Extremity Narrative: Bilateral lower extremity edema +2 non pitting with haemosiderin staining over lower legs bilaterally Skin Wound Narrative: Left ulcer cluster that is pink, and very tender to palpation. Neuro oriented x3 and CN's II-XII intact bilaterally Psych mental status grossly normal Debridement Note Debridement Note Wound debrided: anterior leg ulcer cluster Laterality: Left Type of Debridement: Excisional debridement Anesthesia Used: 4% Lidocaine Solution Depth: Down to and including healthy tissue and in the subcutaneous layer Percentage of wound debrided: 100 Instrument Used: 3mm curette Tissue Removed: Subcutaneous tissue and slough Severity: Fat Layer Exposed Amount of bleeding with debridement: Mild Bleeding Controlled with: Pressure and Compression and gauze Patient tolerated procedure: Patient tolerated procedure well Post-Debridement Measurements and Additional Note: Post-Debridement Measurements/Treatment LESIA - Nurse 1 - General Ulcer Assessment Start: 04/20/21 09:56 Freq: Status: Active Protocol: ALEJANDRO Activity Type Activity Date Activity User E-Sign Co-Sign Detail Recorded Client Recorded Date Recorded By Document 04/20/21 10:09 MELODY [id number] 04/20/21 10:18 KR Document 04/20/21 10:22 MELODY [id number] 04/20/21 10:25 KR 04/20/21 04/20/21 10:09 10:22 - Today's Visit Information Type of service Initial Visit Arrival Mode Ambulatory Patient Identification Verified (Name & Yes ) Vital Signs Temperature (97.8 F-99.1 F) 97.6 F L Temperature Source Temporal Pulse Rate (60-100) 75 Pulse Location Monitor Blood Pressure (90/60-120/80) 135/63 H Blood Pressure Mean 87 Source Monitor Position Semi-Fowlers Blood Pressure Location Right Arm History Since Last Visit- (Skip if this is Patient's initial visit) Have you changed medications since your No last visit? Any new allergies or adverse reactions No Had a fall/change in ADL's that may No increase risk of falls Signs or symptoms of abuse and/or No neglect since last visit Have you been in the hospital since your No last visit? Has dressing in place as prescribed No Has compression in place as prescribed N/A Has offloadiing in place as prescribed N/A Experienced any changes in pain level or No management Left Footwear Regular Shoe Right Footwear Regular Shoe Pain Scale: 0-10 Numeric Is Patient Pain Free? Yes Lower Extremity Assessment/ Foot Assessment/ Toe Nail Assessment Right -Polpliteal Pulses Palpable Yes -Popliteal Doppler Multiphasic -Posterior Tibial Palpable Yes -Posterior Tibial Doppler Multiphasic -Dorsalis Pedis Palpable Yes -Dorsalis Pedis Doppler Multiphasic -Extremity Color Normal -Hair Growth on Legs Yes -Hair Growth on Toes Yes -Temperature of Extremity Warm -Capillary Refill Less than 3 Seconds -Dependent Rubor No -Blanched when Elevated No -Lipodermatosclerosis No -Other Deformity No -Prior Foot Ulcer No -Charcot Joint No -Prior Amputation No -Toe Nail Assessment Unable to perform due to Altered Mental Status -Discolored No -Deformed No -Improper Length & Hygeine No Left -Polpliteal Pulses Palpable Yes -Popliteal Doppler Multiphasic -Posterior Tibial Palpable Yes -Posterior Tibial Doppler Multiphasic -Dorsalis Pedis Palpable Yes -Dorsalis Pedis Doppler Multiphasic -Extremity Color Normal -Hair Growth on Legs Yes -Hair Growth on Toes Yes -Temperature of Extremity Warm -Capillary Refill Less than 3 Seconds -Dependent Rubor No -Blanched when Elevated N/A -Lipodermatosclerosis No -Other Deformity No -Prior Foot Ulcer No -Charcot Joint No -Prior Amputation No -Thick No -Discolored No -Deformed No -Improper Length & Hygeine No Neuropathy Assessment Feet - Top Side and Bottom <Entered> (a) (a) 1 - + 2 - + 3 - + 4 - + 5 - + 6 - + 7 - + WC - Nurse 1 - General Ulcer Measurement Start: 04/20/21 09:56 Freq: Status: Active Protocol: Activity Type Activity Date Activity User E-Sign Co-Sign Detail Recorded Client Recorded Date Recorded By Document 04/20/21 10:09 MELODY [id number] 04/20/21 10:18 MELODY 04/20/21 10:09 Wound Center Nurse 1 #2 Left Grider Cluster -Current Size (cm) - Length 6.5 -Current Size (cm) - Width 2.5 -Current Size (cm) - Depth 0.1 -Total Square Cm 16.25 -Exudate Amt Medium -Exudate Type Serosanguineous -Wound Margin Distinct, Outline Attached -Granulation Amt Large (67-100%) -Granulation Quality Red -Necrosis Amt None Present (0 %) -Texture (Dagmar-wound Skin Appearance) Assessed, Scarring -Moisture (Dagmar-wound Skin Appearance) No Abnormality, Assessed -Color (Dagmar-wound Skin Appearance) No Abnormality, Assessed -Temperature (Dagmar-wound Skin No Abnormality Appearance) (Pt Warm) -Tenderness on Palpation (Dagmar-wound No Skin Appearance) -Ulcer Cleansing Rinsed/ Irrigated with Saline -Foul Odor after Cleansing No -Anesthetic Used 4% Lidocaine Solution Right Calf (cm) 48.3 Right Ankle (cm) 28 Left Calf (cm) 47.7 Left Ankle (cm) 29 - Nurse 2 - General Ulcer CM Notes Start: 04/20/21 09:56 Freq: Status: Active Protocol: Activity Type Activity Date Activity User E-Sign Co-Sign Detail Recorded Client Recorded Date Recorded By Document 04/20/21 11:04 SHALONDA [id number] 04/20/21 11:12 SHALONDA 04/20/21 11:04 Wound Center Nurse 2 #2 Left Grider Cluster -Time 11:08 -Correct Patient Yes -Correct Side, Site, Position Yes -Correct Procedure Yes -Procedure Performed Yes -Type of Procedure Debridement -Clinical Debridement Subcutaneous -Tissue Removed Subcutaneous -Post Debridement (cm) - Length 7 -Post Debridement (cm) - Width 4 -Post Debridement (cm) - Depth 0.1 -Total Square (Post) (cm) 28 -Area of Debridement (cm) - Length 7 -Area of Debridement (cm) - Width 4 -Total Square (Area) (cm) 28 -Tunneling No -Undermining/Tunneling No -Circular Undermining No -Wound/Ulcer Outcome Not Healed -Ulcer Cleansing Rinsed/ Irrigated with Saline -Foul Odor after Cleansing No -Bioengineered Tissue No -Bleeding Controlled with Pressure -Offloading No -Treatment Response Procedure Tolerated Well -Debridement - Subq, 1st 20sq cm Yes -Debridement, SubQ, ea addt'l 20sq cm 1 or part thereof Pain Scale: 0-10 Numeric Is Patient Pain Free? Yes - Nurse 3 - General Ulcer D/C NN Start: 04/20/21 09:56 Freq: Status: Active Protocol: Activity Type Activity Date Activity User E-Sign Co-Sign Detail Recorded Client Recorded Date Recorded By Document 04/20/21 11:18 DL [id number] 04/20/21 11:20 DL 04/20/21 11:18 Wound Care Nurse 3 #2 Left Grider Cluster -Ulcer Cleansing Rinsed/ Irrigated with Saline -Foul Odor after Cleansing No -Primary Dressing Applied Fibracol Plus 4x4 -Primary Dressing Covered/Secured with Dry Gauze & Roll Gauze, Secured with Tape -Fibracol Plus 4x4 1 Left -Compression Wrap Jerrell Wrap -Tubular Bandage Single Layer -Size of Tubigrip Used Size D -Size D ($) 1 Treatment Response Procedure Tolerated Well Pain Scale: 0-10 Numeric Is Patient Pain Free? Yes - Visit Discharge Discharge Condition Stable Ambulatory Status Ambulatory Transportation Private Auto Charges/Coding Visit Charges Office Visits / Consults: 11478 OV L4 Est (25 modifier spent over 30 minutes with patient, planning care and reviewing pcp notes) Multi Select Codes Integumentary Integumentary CPT Codes: 68652 Ivett subq tissue 20 sq cm/< (53938 x1) Assessment/Plan Assessment/Plan (1) Ulcer of left lower extremity with fat layer exposed: CODE(S): L97.922 - Non-pressure chronic ulcer of unspecified part of left lower leg with fat layer exposed (2) Bilateral edema of lower extremity: CODE(S): R60.0 - Localized edema (3) Chronic anticoagulation: CODE(S): Z79.01 - detention (current) use of anticoagulants (4) Venous insufficiency of both lower extremities: CODE(S): I87.2 - Venous insufficiency (chronic) (peripheral) PLAN: Wound care to the left leg ulcer cluster is daily Fibrocol covered with gauze. He will wear a tubigrip topped with an JERRELL wrap for compression. Obtained a wound culture today. Depending on the results of the culture, it may necessitate the need for treatment with antibiotics. Elevate legs as much as possible. Encouraged increase protein intake to help with wound healing. May increase Vitamin C to 1,000 mg per day to also help with wound healing. Reviewed PCP physician notes. Greater than 30 minutes was spent with patient and organizing plan of care and reviewing other providers's notes. Reviewed previous vascular studies. If there is not improvement in wound healing over the next several weeks, I will consider obtaining new vascular studies since his are over one year old. Follow up on week.
[2021-04-27 09:33] VITALS: BP 139/79; PULSE 71; RESP 16; TEMP 36.6
--- NOTE | 2021-04-27 14:42 | PCM.WC.PN ---
History of Present Illness Date of Service: 04/27/21 Chief Complaint: Left grider wounds. History of Wound: Patient was working in his garage in the fall when he bumped his leg that created several open areas. Patient bumped his left grider on a storage tote in his garage about 4 weeks ago. 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 He went to his PCP for evaluation. He was using left over silver alginate dressing from his last wound from early 2019. Wound wasn't improving so his PCP referred him to the wound center. He has a history of venous insufficiency. He has seen Dr. Moran in the past for some procedures to help with this issue. He has compression stockings that he has not been wearing over the summer because they are too warm. On 05/31/19 he had vascular studies. Arterial studies which showed right SHAGGY=1.14, left SHAGGY= 1.1. There is no evidence of significant arterial occlusive disease in the lower extremities bilaterally. Venous duplex ultrasound showed the right sapheno-femoral junction is incompetent. Segmental valvular incompetence is noted within the great saphenous veins bilaterally. Small saphenous veins are patent and incompetent bilaterally. An incompetent accessory saphenous vein is noted in the right proximal thigh. An incompetent accessory saphenous vein is noted below the right knee. An incompetent accessory saphenous vein is noted below the left knee. Wound care - Fibrocol covered by gauze daily. Tubigrip with JERRELL wrap over it for compression. Wound culture of ulcer obtained on 04/20/21 which showed rare Corynebacterium minutissimum which is most likely skin contaminant. He denies fevers. He states he has a good appetite. Progress of Wound: Left anterior leg ulcer is pink, tender to palpation. There is bruising present surrounding the ulcer. Objective Data Objective Data Vital Signs: Vital Signs Temp Pulse Resp BP 97.8 F 71 16 139/79 H 04/27/21 09:33 04/27/21 09:33 04/27/21 09:33 04/27/21 09:33 Oxygen Delivery Method Room Air Lab / Micro Data Micro: Microbiology 04/20/21 11:07 Wound Abcess - Leg, Left Gram Stain - Final 04/20/21 11:07 Wound Abcess - Leg, Left Wound Culture - Final Corynebacterium minutissimum 04/20/21 11:07 Wound Abcess - Leg, Left Anaerobic Culture - Final No anaerobic bacteria isolated. Charges/Coding Procedures Integumentary 111xxx-113xx: [id number] Ivett subq tissue 20 sq cm/< Add On Codes: 29532 Ivett subq tissue add-on Physical Exam Const alert and oriented x3 HEENT normocephalic Head and Scalp: atraumatic Resp normal respiratory effort Cardio regular rate GI Palpation: soft Extremity normal capillary refill General Extremity: edema Skin Wound Narrative: Left anterior leg ulcer with new bruising surrounding the ulcer. Neuro CN's II-XII intact bilaterally Psych Appearance: grossly normal Debridement Note Debridement Note Wound debrided: anterior leg ulcer Laterality: Left Type of Debridement: Excisional debridement Anesthesia Used: 5% Lidocaine Gel Depth: Down to and including healthy tissue and in the subcutaneous layer Percentage of wound debrided: 100 Instrument Used: 5mm curette Tissue Removed: Subcutaneous tissue and slough, increased dried scabbing surrounding ulcer Severity: Fat Layer Exposed Amount of bleeding with debridement: Mild Bleeding Controlled with: Compression and gauze Patient tolerated procedure: Patient tolerated procedure well Post-Debridement Measurements and Additional Note: Post-Debridement Measurements/Treatment - Nurse 1 - General Ulcer Assessment Start: 04/20/21 09:56 Freq: Status: Active Protocol: ALEJANDRO Activity Type Activity Date Activity User E-Sign Co-Sign Detail Recorded Client Recorded Date Recorded By Document 04/20/21 10:09 MELODY [id number] 04/20/21 10:18 KR Document 04/20/21 10:22 KR [id number] 04/20/21 10:25 KR Document 04/27/21 09:33 DL [id number] 04/27/21 09:38 DL 04/20/21 04/20/21 04/27/21 10:09 10:22 09:33 - Today's Visit Information Type of service Initial Visit Follow-up Visit (Physician/[employer] ) Arrival Mode Ambulatory Ambulatory Transfer Assistance None Accompanied by girlfriend Patient Identification Verified (Name & Yes Yes ) Patient Requires Transmission-Based No Precautions Vital Signs Temperature (97.8 F-99.1 F) 97.6 F L 97.8 F Temperature Source Temporal Oral Pulse Rate (60-100) 75 71 Pulse Location Monitor Monitor Respiratory Rate (12-18) 16 Respiratory rate source Observation Oxygen Delivery Method Room Air Blood Pressure (90/60-120/80) 135/63 H 139/79 H Blood Pressure Mean (mm Hg) 87 99 Source Monitor Monitor Position Semi-Fowlers Sitting Blood Pressure Location Right Arm Left Arm History Since Last Visit- (Skip if this is Patient's initial visit) Have you changed medications since your No No last visit? Any new allergies or adverse reactions No No Had a fall/change in ADL's that may No No increase risk of falls Signs or symptoms of abuse and/or No No neglect since last visit Have you been in the hospital since your No No last visit? Has dressing in place as prescribed No Yes Has compression in place as prescribed N/A Yes Has offloadiing in place as prescribed N/A N/A Experienced any changes in pain level or No No management Left Footwear Regular Shoe Regular Shoe Right Footwear Regular Shoe Regular Shoe Pain Scale: 0-10 Numeric Is Patient Pain Free? Yes Yes Lower Extremity Assessment/ Foot Assessment/ Toe Nail Assessment Right -Polpliteal Pulses Palpable Yes -Popliteal Doppler Multiphasic -Posterior Tibial Palpable Yes -Posterior Tibial Doppler Multiphasic -Dorsalis Pedis Palpable Yes -Dorsalis Pedis Doppler Multiphasic -Extremity Color Normal -Hair Growth on Legs Yes -Hair Growth on Toes Yes -Temperature of Extremity Warm -Capillary Refill Less than 3 Seconds -Dependent Rubor No -Blanched when Elevated No -Lipodermatosclerosis No -Other Deformity No -Prior Foot Ulcer No -Charcot Joint No -Prior Amputation No -Toe Nail Assessment Unable to perform due to Altered Mental Status -Discolored No -Deformed No -Improper Length & Hygeine No Left -Polpliteal Pulses Palpable Yes -Popliteal Doppler Multiphasic -Posterior Tibial Palpable Yes -Posterior Tibial Doppler Multiphasic -Dorsalis Pedis Palpable Yes -Dorsalis Pedis Doppler Multiphasic -Extremity Color Normal -Hair Growth on Legs Yes -Hair Growth on Toes Yes -Temperature of Extremity Warm -Capillary Refill Less than 3 Seconds -Dependent Rubor No -Blanched when Elevated N/A -Lipodermatosclerosis No -Other Deformity No -Prior Foot Ulcer No -Charcot Joint No -Prior Amputation No -Thick No -Discolored No -Deformed No -Improper Length & Hygeine No Neuropathy Assessment Feet - Top Side and Bottom <Entered> (a) (a) 1 - + 2 - + 3 - + 4 - + 5 - + 6 - + 7 - + WC - Nurse 1 - General Ulcer Measurement Start: 04/20/21 09:56 Freq: Status: Active Protocol: Activity Type Activity Date Activity User E-Sign Co-Sign Detail Recorded Client Recorded Date Recorded By Document 04/20/21 10:09 KR [id number] 04/20/21 10:18 KR Document 04/27/21 09:33 DL [id number] 04/27/21 09:38 DL 04/20/21 04/27/21 10:09 09:33 Wound Center Nurse 1 #2 Left Grider Cluster -Combined with other wound No -Current Size (cm) - Length 6.5 7.3 -Current Size (cm) - Width 2.5 2 -Current Size (cm) - Depth 0.1 0.1 -Total Square Cm 16.25 14.6 -Photo Taken No -Epithelialization None Present -Tunneling No -Undermining/Tunneling No -Circular Undermining No -Exudate Amt Medium Medium -Exudate Type Serosanguineous Serosanguineous -Wound Margin Distinct, Flat & Intact Outline Attached -Granulation Amt Large (67-100%) Medium (34-66%) -Granulation Quality Red Red -Slough/Fibrin Yes -Necrosis Amt None Present (0 Medium (34-66%) %) -Necrotic Tissue Type Adherent Slough -Texture (Dagmar-wound Skin Appearance) Assessed, Assessed, Scarring Scarring -Moisture (Dagmar-wound Skin Appearance) No Abnormality, Assessed Assessed -Color (Dagmar-wound Skin Appearance) No Abnormality, Assessed, Assessed Erythema, Hemosiderin Staining -Temperature (Dagmar-wound Skin No Abnormality No Abnormality Appearance) (Pt Warm) (Pt Warm) -Tenderness on Palpation (Dagmar-wound No Yes Skin Appearance) -Ulcer Cleansing Rinsed/ Rinsed/ Irrigated with Irrigated with Saline Saline -Foul Odor after Cleansing No No -Anesthetic Used 4% Lidocaine 4% Lidocaine Solution Solution Lower Limb Edema Present Yes Right Calf (cm) 48.3 Right Ankle (cm) 28 Left Calf (cm) 47.7 46 Left Ankle (cm) 29 28 WC - Nurse 2 - General Ulcer CM Notes Start: 04/20/21 09:56 Freq: Status: Active Protocol: Activity Type Activity Date Activity User E-Sign Co-Sign Detail Recorded Client Recorded Date Recorded By Document 04/20/21 11:04 JF [id number] 04/20/21 11:12 Document 04/27/21 10:02 JF [id number] 04/27/21 10:12 JF 04/20/21 04/27/21 11:04 10:02 Wound Center Nurse 2 #2 Left Grider Cluster -Time 11:08 10:03 -Correct Patient Yes Yes -Correct Side, Site, Position Yes Yes -Correct Procedure Yes Yes -Procedure Performed Yes Yes -Type of Procedure Debridement Debridement -Clinical Debridement Subcutaneous Subcutaneous -Tissue Removed Subcutaneous Subcutaneous -Post Debridement (cm) - Length 7 7.8 -Post Debridement (cm) - Width 4 3 -Post Debridement (cm) - Depth 0.1 0.1 -Total Square (Post) (cm) 28 23.4 -Area of Debridement (cm) - Length 7 7.8 -Area of Debridement (cm) - Width 4 3 -Total Square (Area) (cm) 28 23.4 -Tunneling No No -Undermining/Tunneling No No -Circular Undermining No No -Wound/Ulcer Outcome Not Healed Not Healed -Ulcer Cleansing Rinsed/ Rinsed/ Irrigated with Irrigated with Saline Saline -Foul Odor after Cleansing No No -Bioengineered Tissue No No -Bleeding Controlled with Pressure Pressure -Offloading No No -Treatment Response Procedure Procedure Tolerated Well Tolerated Well -Debridement - Subq, 1st 20sq cm Yes Yes -Debridement, SubQ, ea addt'l 20sq cm 1 1 or part thereof Pain Scale: 0-10 Numeric Is Patient Pain Free? Yes Yes - Nurse 3 - General Ulcer D/C NN Start: 04/20/21 09:56 Freq: Status: Active Protocol: Activity Type Activity Date Activity User E-Sign Co-Sign Detail Recorded Client Recorded Date Recorded By Document 04/20/21 11:18 KAYLEN [id number] 04/20/21 11:20 DL 04/20/21 11:18 Wound Care Nurse 3 #2 Left Grider Cluster -Ulcer Cleansing Rinsed/ Irrigated with Saline -Foul Odor after Cleansing No -Primary Dressing Applied Fibracol Plus 4x4 -Primary Dressing Covered/Secured with Dry Gauze & Roll Gauze, Secured with Tape -Fibracol Plus 4x4 1 Left -Compression Wrap Jerrell Wrap -Tubular Bandage Single Layer -Size of Tubigrip Used Size D -Size D ($) 1 Treatment Response Procedure Tolerated Well Pain Scale: 0-10 Numeric Is Patient Pain Free? 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 He will wear a tubigrip topped with an JERRELL wrap for compression. Because of his new bruising surrounding the ulcer, we will make his tubigrip larger to see if this is what is causing the bruising. Wound culture from 04/20/21 was positive for rare amount of Corynebacterium minutissimum. This is a skin contaminant. Will continue to monitor closely. Elevate legs as much as possible. Encouraged increase protein intake to help with wound healing. May increase Vitamin C to 1,000 mg per day to also help with wound healing. Reviewed previous vascular studies. If there is not improvement in wound healing over the next several weeks, I will consider obtaining new vascular studies since his are over [age] year old. Follow up on week.
[2021-05-04 13:51] VITALS: BP 136/68; PULSE 80; TEMP 36.2
--- NOTE | 2021-05-04 15:33 | PN.PCM_ITS ---
History of Present Illness Date of Service: 05/04/21 Chief Complaint: Left grider wounds. History of Wound: Patient was working in his garage in the fall when he bumped his leg that created several open areas. Patient bumped his left grider on a storage tote in his garage about 4 weeks ago. 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 He went to his PCP for evaluation. He was using left over silver alginate dressing from his last wound from early 2019. Wound wasn't improving so his PCP referred him to the wound center. He has a history of venous insufficiency. He has seen Dr. Moran in the past for some procedures to help with this issue. He has compression stockings that he has not been wearing over the summer because they are too warm. On 05/31/19 he had vascular studies. Arterial studies which showed right SHAGGY=1.14, left SHAGGY= 1.1. There is no evidence of significant arterial occlusive disease in the lower extremities bilaterally. Venous duplex ultrasound showed the right sapheno-femoral junction is incompetent. Segmental valvular incompetence is noted within the great saphenous veins bilaterally. Small saphenous veins are patent and incompetent bilaterally. An incompetent accessory saphenous vein is noted in the right proximal thigh. An incompetent accessory saphenous vein is noted below the right knee. An incompetent accessory saphenous vein is noted below the left knee. Wound care - Moistened Fibrocol + covered with adaptic topped by gauze daily. Place adaptic over the the fragile healed skin. Tubigrip with JERRELL wrap over it for compression. Wound culture of ulcer obtained on 04/20/21 which showed rare Corynebacterium minutissimum which is most likely skin contaminant. He denies fevers. He states he has a good appetite. Progress of Wound: Significant improvement over the past week. Improvement in the edema. Objective Data Objective Data Vital Signs: Vital Signs Temp Pulse Resp BP 97.2 F L 80 16 136/68 H 05/04/21 13:51 05/04/21 13:51 04/27/21 09:33 05/04/21 13:51 Oxygen Delivery Method Room Air Lab / Micro Data Micro: Microbiology 04/20/21 11:07 Wound Abcess - Leg, Left Gram Stain - Final 04/20/21 11:07 Wound Abcess - Leg, Left Wound Culture - Final Corynebacterium minutissimum 04/20/21 11:07 Wound Abcess - Leg, Left Anaerobic Culture - Final No anaerobic bacteria isolated. Charges/Coding Procedures Integumentary [id number]: [id number] Ivett subq tissue 20 sq cm/< Physical Exam Const alert and oriented x3 General Appearance: cooperative HEENT normocephalic Resp normal respiratory effort Cardio regular rate GI non-tender Extremity normal capillary refill Extremity Narrative: Bilateral leg edema General Extremity: edema Skin Wound Narrative: Left anterior leg ulcer is much improved this week. The healed portion of the ulcer has fragile skin. Neuro CN's II-XII intact bilaterally Psych Appearance: grossly normal Debridement Note Debridement Note Wound debrided: anterior leg ulcer Laterality: Left Type of Debridement: Excisional debridement Anesthesia Used: 5% Lidocaine Gel Depth: Down to and including healthy tissue and in the subcutaneous layer Percentage of wound debrided: 100 Instrument Used: 3mm curette Tissue Removed: Subcutanous tissue and slough Severity: Fat Layer Exposed Amount of bleeding with debridement: Mild Bleeding Controlled with: Pressure Patient tolerated procedure: Patient tolerated procedure well Post-Debridement Measurements and Additional Note: Post-Debridement Measurements/Treatment - Nurse 1 - General Ulcer Assessment Start: 04/20/21 09:56 Freq: Status: Active Protocol: ALEJANDRO Activity Type Activity Date Activity User E-Sign Co-Sign Detail Recorded Client Recorded Date Recorded By Document 04/20/21 10:09 KR [id number] 04/20/21 10:18 KR Document 04/20/21 10:22 KR [id number] 04/20/21 10:25 KR Document 04/27/21 09:33 DL [id number] 04/27/21 09:38 DL Document 05/04/21 13:51 KR [id number] 05/04/21 13:55 KR 04/20/21 04/20/21 04/27/21 10:09 10:22 09:33 - Today's Visit Information Type of service Initial Visit Follow-up Visit (Physician/ENTREPRENEURSHIP PROGRAM DIRECTOR ) Arrival Mode Ambulatory Ambulatory Transfer Assistance None Accompanied by girlfriend Patient Identification Verified (Name & Yes Yes ) Patient Requires Transmission-Based No Precautions Vital Signs Temperature (97.8 F-99.1 F) 97.6 F L 97.8 F Temperature Source Temporal Oral Pulse Rate (60-100) 75 71 Pulse Location Monitor Monitor Respiratory Rate (12-18) 16 Respiratory rate source Observation Oxygen Delivery Method Room Air Blood Pressure (90/60-120/80) 135/63 H 139/79 H Blood Pressure Mean (mm Hg) 87 99 Source Monitor Monitor Position Semi-Fowlers Sitting Blood Pressure Location Right Arm Left Arm History Since Last Visit- (Skip if this is Patient's initial visit) Have you changed medications since your No No last visit? Any new allergies or adverse reactions No No Had a fall/change in ADL's that may No No increase risk of falls Signs or symptoms of abuse and/or No No neglect since last visit Have you been in the hospital since your No No last visit? Has dressing in place as prescribed No Yes Has compression in place as prescribed N/A Yes Has offloadiing in place as prescribed N/A N/A Experienced any changes in pain level or No No management Left Footwear Regular Shoe Regular Shoe Right Footwear Regular Shoe Regular Shoe Pain Scale: 0-10 Numeric Is Patient Pain Free? Yes Yes Lower Extremity Assessment/ Foot Assessment/ Toe Nail Assessment Right -Polpliteal Pulses Palpable Yes -Popliteal Doppler Multiphasic -Posterior Tibial Palpable Yes -Posterior Tibial Doppler Multiphasic -Dorsalis Pedis Palpable Yes -Dorsalis Pedis Doppler Multiphasic -Extremity Color Normal -Hair Growth on Legs Yes -Hair Growth on Toes Yes -Temperature of Extremity Warm -Capillary Refill Less than 3 Seconds -Dependent Rubor No -Blanched when Elevated No -Lipodermatosclerosis No -Other Deformity No -Prior Foot Ulcer No -Charcot Joint No -Prior Amputation No -Toe Nail Assessment Unable to perform due to Altered Mental Status -Discolored No -Deformed No -Improper Length & Hygeine No Left -Polpliteal Pulses Palpable Yes -Popliteal Doppler Multiphasic -Posterior Tibial Palpable Yes -Posterior Tibial Doppler Multiphasic -Dorsalis Pedis Palpable Yes -Dorsalis Pedis Doppler Multiphasic -Extremity Color Normal -Hair Growth on Legs Yes -Hair Growth on Toes Yes -Temperature of Extremity Warm -Capillary Refill Less than 3 Seconds -Dependent Rubor No -Blanched when Elevated N/A -Lipodermatosclerosis No -Other Deformity No -Prior Foot Ulcer No -Charcot Joint No -Prior Amputation No -Thick No -Discolored No -Deformed No -Improper Length & Hygeine No Neuropathy Assessment Feet - Top Side and Bottom <Entered> (a) 05/04/21 13:51 WC - Today's Visit Information Type of service Follow-up Visit (Physician/ENTREPRENEURSHIP PROGRAM DIRECTOR ) Arrival Mode Ambulatory Transfer Assistance Accompanied by Patient Identification Verified (Name & Yes ) Patient Requires Transmission-Based Precautions Vital Signs Temperature (97.8 F-99.1 F) 97.2 F L Temperature Source Temporal Pulse Rate (60-100) 80 Pulse Location Monitor Respiratory Rate (12-18) Respiratory rate source Oxygen Delivery Method Blood Pressure (90/60-120/80) 136/68 H Blood Pressure Mean (mm Hg) 90 Source Monitor Position Sitting Blood Pressure Location Right Arm History Since Last Visit- (Skip if this is Patient's initial visit) Have you changed medications since your No last visit? Any new allergies or adverse reactions No Had a fall/change in ADL's that may No increase risk of falls Signs or symptoms of abuse and/or No neglect since last visit Have you been in the hospital since your No last visit? Has dressing in place as prescribed Yes Has compression in place as prescribed N/A Has offloadiing in place as prescribed N/A Experienced any changes in pain level or No management Left Footwear Regular Shoe Right Footwear Regular Shoe Pain Scale: 0-10 Numeric Is Patient Pain Free? Yes Lower Extremity Assessment/ Foot Assessment/ Toe Nail Assessment Right -Polpliteal Pulses Palpable -Popliteal Doppler -Posterior Tibial Palpable -Posterior Tibial Doppler -Dorsalis Pedis Palpable -Dorsalis Pedis Doppler -Extremity Color -Hair Growth on Legs -Hair Growth on Toes -Temperature of Extremity -Capillary Refill -Dependent Rubor -Blanched when Elevated -Lipodermatosclerosis -Other Deformity -Prior Foot Ulcer -Charcot Joint -Prior Amputation -Toe Nail Assessment -Discolored -Deformed -Improper Length & Hygeine Left -Polpliteal Pulses Palpable -Popliteal Doppler -Posterior Tibial Palpable -Posterior Tibial Doppler -Dorsalis Pedis Palpable -Dorsalis Pedis Doppler -Extremity Color -Hair Growth on Legs -Hair Growth on Toes -Temperature of Extremity -Capillary Refill -Dependent Rubor -Blanched when Elevated -Lipodermatosclerosis -Other Deformity -Prior Foot Ulcer -Charcot Joint -Prior Amputation -Thick -Discolored -Deformed -Improper Length & Hygeine Neuropathy Assessment Feet - Top Side and Bottom (a) 1 - + 2 - + 3 - + 4 - + 5 - + 6 - + 7 - + WC - Nurse 1 - General Ulcer Measurement Start: 04/20/21 09:56 Freq: Status: Active Protocol: Activity Type Activity Date Activity User E-Sign Co-Sign Detail Recorded Client Recorded Date Recorded By Document 04/20/21 10:09 KR [id number] 04/20/21 10:18 KR Document 04/27/21 09:33 DL [id number] 04/27/21 09:38 DL Document 05/04/21 13:51 KR [id number] 05/04/21 13:55 KR 04/20/21 04/27/21 05/04/21 10:09 09:33 13:51 Wound Center Nurse 1 #2 Left Grider Cluster -Combined with other wound No -Current Size (cm) - Length 6.5 7.3 0.5 -Current Size (cm) - Width 2.5 2 0.3 -Current Size (cm) - Depth 0.1 0.1 0.1 -Total Square Cm 16.25 14.6 0.15 -Photo Taken No -Epithelialization None Present -Tunneling No -Undermining/Tunneling No -Circular Undermining No -Exudate Amt Medium Medium Small -Exudate Type Serosanguineous Serosanguineous Serosanguineous -Wound Margin Distinct, Flat & Intact Distinct, Outline Outline Attached Attached -Granulation Amt Large (67-100%) Medium (34-66%) Medium (34-66%) -Granulation Quality Red Red Red -Slough/Fibrin Yes -Necrosis Amt None Present (0 Medium (34-66%) None Present (0 %) %) -Necrotic Tissue Type Adherent Slough -Texture (Dagmar-wound Skin Appearance) Assessed, Assessed, Assessed, Scarring Scarring Scarring -Moisture (Dagmar-wound Skin Appearance) No Abnormality, Assessed No Abnormality, Assessed Assessed -Color (Dagmar-wound Skin Appearance) No Abnormality, Assessed, No Abnormality, Assessed Erythema, Assessed Hemosiderin Staining -Temperature (Dagmar-wound Skin No Abnormality No Abnormality No Abnormality Appearance) (Pt Warm) (Pt Warm) (Pt Warm) -Tenderness on Palpation (Dagmar-wound No Yes No Skin Appearance) -Ulcer Cleansing Rinsed/ Rinsed/ Rinsed/ Irrigated with Irrigated with Irrigated with Saline Saline Saline -Foul Odor after Cleansing No No No -Anesthetic Used 4% Lidocaine 4% Lidocaine 4% Lidocaine Solution Solution Solution Lower Limb Edema Present Yes Right Calf (cm) 48.3 Right Ankle (cm) 28 Left Calf (cm) 47.7 46 49.4 Left Ankle (cm) 29 28 29 WC - Nurse 2 - General Ulcer CM Notes Start: 04/20/21 09:56 Freq: Status: Active Protocol: Activity Type Activity Date Activity User E-Sign Co-Sign Detail Recorded Client Recorded Date Recorded By Document 04/20/21 11:04 [id number] 04/20/21 11:12 Document 04/27/21 10:02 [id number] 04/27/21 10:12 Document 05/04/21 14:07 [id number] 05/04/21 14:09 04/20/21 04/27/21 05/04/21 11:04 10:02 14:07 Wound Center Nurse 2 #2 Left Grider Cluster -Time 11:08 10:03 14:07 -Correct Patient Yes Yes Yes -Correct Side, Site, Position Yes Yes Yes -Correct Procedure Yes Yes Yes -Procedure Performed Yes Yes Yes -Type of Procedure Debridement Debridement Debridement -Clinical Debridement Subcutaneous Subcutaneous Subcutaneous -Tissue Removed Subcutaneous Subcutaneous Subcutaneous -Post Debridement (cm) - Length 7 7.8 0.7 -Post Debridement (cm) - Width 4 3 0.5 -Post Debridement (cm) - Depth 0.1 0.1 0.1 -Total Square (Post) (cm) 28 23.4 0.35 -Area of Debridement (cm) - Length 7 7.8 0.7 -Area of Debridement (cm) - Width 4 3 0.5 -Total Square (Area) (cm) 28 23.4 0.35 -Tunneling No No No -Undermining/Tunneling No No No -Circular Undermining No No No -Wound/Ulcer Outcome Not Healed Not Healed Not Healed -Ulcer Cleansing Rinsed/ Rinsed/ Rinsed/ Irrigated with Irrigated with Irrigated with Saline Saline Saline -Foul Odor after Cleansing No No No -Bioengineered Tissue No No No -Bleeding Controlled with Pressure Pressure Pressure -Offloading No No No -Treatment Response Procedure Procedure Procedure Tolerated Well Tolerated Well Tolerated Well -Debridement - Subq, 1st 20sq cm Yes Yes Yes -Debridement, SubQ, ea addt'l 20sq cm 1 1 or part thereof Pain Scale: 0-10 Numeric Is Patient Pain Free? Yes Yes Yes - Nurse 3 - General Ulcer D/C NN Start: 04/20/21 09:56 Freq: Status: Active Protocol: Activity Type Activity Date Activity User E-Sign Co-Sign Detail Recorded Client Recorded Date Recorded By Document 04/20/21 11:18 DL [id number] 04/20/21 11:20 DL Document 05/04/21 14:24 KR [id number] 05/04/21 14:25 KR 04/20/21 05/04/21 11:18 14:24 Wound Care Nurse 3 #2 Left Grider Cluster -Ulcer Cleansing Rinsed/ Rinsed/ Irrigated with Irrigated with Saline Saline -Foul Odor after Cleansing No -Primary Dressing Applied Fibracol Plus Fibracol Plus 4x4 4x4,NonAdherent Contact Layer -Primary Dressing Covered/Secured with Dry Gauze & Dry Gauze, Roll Gauze, Secured with Secured with Tape Tape -Fibracol Plus 4x4 1 1 Left -Compression Wrap Jerrell Wrap -Tubular Bandage Single Layer -Size of Tubigrip Used Size D -Size D ($) 1 Treatment Response Procedure Tolerated Well Pain Scale: 0-10 Numeric Is Patient Pain Free? Yes Yes - Visit Discharge Discharge Condition Stable Stable Ambulatory Status Ambulatory Ambulatory Transportation Private Auto Private Auto Accompanied by Assessment/Plan Assessment/Plan (1) Ulcer of left lower extremity with fat layer exposed: CODE(S): L97.922 - Non-pressure chronic ulcer of unspecified part of left lower leg with fat layer exposed (2) Venous insufficiency of both lower extremities: CODE(S): I87.2 - Venous insufficiency (chronic) (peripheral) (3) Bilateral edema of lower extremity: CODE(S): R60.0 - Localized edema (4) Chronic anticoagulation: CODE(S): Z79.01 - alf (current) use of anticoagulants PLAN: Wound care to the left leg ulcer is daily moistened Fibrocol cover with adaptic and top with gauze. The adaptic is to cover the area that is newly healed because it is very fragile. He will wear a tubigrip topped with an JERRELL wrap for compression. Because of his new bruising surrounding the ulcer, we will make his tubigrip larger to see if this is what is causing the bruising. He will bring his compression stockings that he has at home to see how they fit him. Wound culture from 04/20/21 was positive for rare amount of Corynebacterium minutissimum. This is a skin contaminant. Will continue to monitor closely. Elevate legs as much as possible. Encouraged increase protein intake to help with wound healing. May increase Vitamin C to 1,000 mg per day to also help with wound healing. Reviewed previous vascular studies. If there is not improvement in wound healing over the next several weeks, I will consider obtaining new vascular studies since his are over [age] year old. Follow up on week.
[2021-05-11 14:34] VITALS: BP 128/72; PULSE 76; RESP 16; TEMP 36.1
--- NOTE | 2021-05-11 14:41 | PN.PCM_ITS ---
History of Present Illness Date of Service: 05/11/21 Chief Complaint: Left grider wounds. History of Wound: Patient was working in his garage in the fall when he bumped his leg that created several open areas. Patient bumped his left grider on a storage tote in his garage about 4 weeks ago. 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 He went to his PCP for evaluation. He was using left over silver alginate dressing from his last wound from early 2019. Wound wasn't improving so his PCP referred him to the wound center. He has a history of venous insufficiency. He has seen Dr. Moran in the past for some procedures to help with this issue. He has compression stockings that he has not been wearing over the summer because they are too warm. On 05/31/19 he had vascular studies. Arterial studies which showed right SHAGGY=1.14, left SHAGGY= 1.1. There is no evidence of significant arterial occlusive disease in the lower extremities bilaterally. Venous duplex ultrasound showed the right sapheno-femoral junction is incompetent. Segmental valvular incompetence is noted within the great saphenous veins bilaterally. Small saphenous veins are patent and incompetent bilaterally. An incompetent accessory saphenous vein is noted in the right proximal thigh. An incompetent accessory saphenous vein is noted below the right knee. An incompetent accessory saphenous vein is noted below the left knee. Wound care - Moistened Fibrocol + covered with adaptic topped by gauze daily. Place adaptic over the the fragile healed skin. Tubigrip with JERRELL wrap over it for compression. Wound culture of ulcer obtained on 04/20/21 which showed rare Corynebacterium minutissimum which is most likely skin contaminant. He denies fevers. He states he has a good appetite. Progress of Wound: His left leg ulcer is healed today. Objective Data Objective Data Vital Signs: Vital Signs Temp Pulse Resp BP 97.0 F L 76 16 128/72 H 05/11/21 14:34 05/11/21 14:34 05/11/21 14:34 05/11/21 14:34 Oxygen Delivery Method Room Air Lab / Micro Data Micro: Microbiology 04/20/21 11:07 Wound Abcess - Leg, Left Gram Stain - Final 04/20/21 11:07 Wound Abcess - Leg, Left Wound Culture - Final Corynebacterium minutissimum 04/20/21 11:07 Wound Abcess - Leg, Left Anaerobic Culture - Final No anaerobic bacteria isolated. Charges/Coding Visit Charges Office Visits / Consults: 04384 OV L3 Est Physical Exam Const alert and oriented x3 General Appearance: cooperative HEENT normocephalic Resp normal respiratory effort Cardio regular rate GI non-tender Palpation: soft Extremity Extremity Narrative: He has bilateral +1 edema, non pitting. He is doing a good job with the compression to help keep the swelling down. Skin Wound Narrative: Left leg ulcer is healed today, the healed skin is very fragile. Neuro CN's II-XII intact bilaterally Psych Appearance: grossly normal Debridement Note Debridement Note No debridement was completed: No debridement was completed today Post-Debridement Measurements and Additional Note: Post-Debridement Measurements/Treatment - Nurse 1 - General Ulcer Assessment Start: 04/20/21 09:56 Freq: Status: Active Protocol: .KENYON Activity Type Activity Date Activity User E-Sign Co-Sign Detail Recorded Client Recorded Date Recorded By Document 04/20/21 10:09 KR [id number] 04/20/21 10:18 KR Document 04/20/21 10:22 KR [id number] 04/20/21 10:25 KR Document 04/27/21 09:33 DL [id number] 04/27/21 09:38 DL Document 05/04/21 13:51 KR [id number] 05/04/21 13:55 KR Document 05/11/21 14:34 ML [id number] 05/11/21 14:36 ML 04/20/21 04/20/21 04/27/21 10:09 10:22 09:33 - Today's Visit Information Type of service Initial Visit Follow-up Visit (Physician/PAYABLE MANAGER ) Arrival Mode Ambulatory Ambulatory Transfer Assistance None Accompanied by girlfriend Patient Identification Verified (Name & Yes Yes ) Patient Requires Transmission-Based No Precautions Safety Precautions Vital Signs Temperature (97.8 F-99.1 F) 97.6 F L 97.8 F Temperature Source Temporal Oral Pulse Rate (60-100) 75 71 Pulse Location Monitor Monitor Respiratory Rate (12-18) 16 Respiratory rate source Observation Oxygen Delivery Method Room Air Blood Pressure (90/60-120/80) 135/63 H 139/79 H Blood Pressure Mean (mm Hg) 87 99 Source Monitor Monitor Position Semi-Fowlers Sitting Blood Pressure Location Right Arm Left Arm History Since Last Visit- (Skip if this is Patient's initial visit) Have you changed medications since your No No last visit? Any new allergies or adverse reactions No No Had a fall/change in ADL's that may No No increase risk of falls Signs or symptoms of abuse and/or No No neglect since last visit Have you been in the hospital since your No No last visit? Has dressing in place as prescribed No Yes Has compression in place as prescribed N/A Yes Has offloadiing in place as prescribed N/A N/A Experienced any changes in pain level or No No management Left Footwear Regular Shoe Regular Shoe Right Footwear Regular Shoe Regular Shoe Pain Scale: 0-10 Numeric Is Patient Pain Free? Yes Yes Lower Extremity Assessment/ Foot Assessment/ Toe Nail Assessment Right -Polpliteal Pulses Palpable Yes -Popliteal Doppler Multiphasic -Posterior Tibial Palpable Yes -Posterior Tibial Doppler Multiphasic -Dorsalis Pedis Palpable Yes -Dorsalis Pedis Doppler Multiphasic -Extremity Color Normal -Hair Growth on Legs Yes -Hair Growth on Toes Yes -Temperature of Extremity Warm -Capillary Refill Less than 3 Seconds -Dependent Rubor No -Blanched when Elevated No -Lipodermatosclerosis No -Other Deformity No -Prior Foot Ulcer No -Charcot Joint No -Prior Amputation No -Toe Nail Assessment Unable to perform due to Altered Mental Status -Discolored No -Deformed No -Improper Length & Hygeine No Left -Polpliteal Pulses Palpable Yes -Popliteal Doppler Multiphasic -Posterior Tibial Palpable Yes -Posterior Tibial Doppler Multiphasic -Dorsalis Pedis Palpable Yes -Dorsalis Pedis Doppler Multiphasic -Extremity Color Normal -Hair Growth on Legs Yes -Hair Growth on Toes Yes -Temperature of Extremity Warm -Capillary Refill Less than 3 Seconds -Dependent Rubor No -Blanched when Elevated N/A -Lipodermatosclerosis No -Other Deformity No -Prior Foot Ulcer No -Charcot Joint No -Prior Amputation No -Thick No -Discolored No -Deformed No -Improper Length & Hygeine No Neuropathy Assessment Feet - Top Side and Bottom <Entered> (a) 05/04/21 05/11/21 13:51 14:34 WC - Today's Visit Information Type of service Follow-up Visit Follow-up Visit (Physician/PAYABLE MANAGER (Physician/PAYABLE MANAGER ) ) Arrival Mode Ambulatory Ambulatory Transfer Assistance None Accompanied by Patient Identification Verified (Name & Yes Yes ) Patient Requires Transmission-Based No Precautions Safety Precautions NA Vital Signs Temperature (97.8 F-99.1 F) 97.2 F L 97.0 F L Temperature Source Temporal Temporal Pulse Rate (60-100) 80 76 Pulse Location Monitor Monitor Respiratory Rate (12-18) 16 Respiratory rate source Observation Oxygen Delivery Method Blood Pressure (90/60-120/80) 136/68 H 128/72 H Blood Pressure Mean (mm Hg) 90 90 Source Monitor Monitor Position Sitting Blood Pressure Location Right Arm History Since Last Visit- (Skip if this is Patient's initial visit) Have you changed medications since your No No last visit? Any new allergies or adverse reactions No No Had a fall/change in ADL's that may No No increase risk of falls Signs or symptoms of abuse and/or No No neglect since last visit Have you been in the hospital since your No No last visit? Has dressing in place as prescribed Yes Yes Has compression in place as prescribed N/A N/A Has offloadiing in place as prescribed N/A N/A Experienced any changes in pain level or No No management Left Footwear Regular Shoe Regular Shoe Right Footwear Regular Shoe Regular Shoe Pain Scale: 0-10 Numeric Is Patient Pain Free? Yes Yes Lower Extremity Assessment/ Foot Assessment/ Toe Nail Assessment Right -Polpliteal Pulses Palpable -Popliteal Doppler -Posterior Tibial Palpable -Posterior Tibial Doppler -Dorsalis Pedis Palpable -Dorsalis Pedis Doppler -Extremity Color -Hair Growth on Legs -Hair Growth on Toes -Temperature of Extremity -Capillary Refill -Dependent Rubor -Blanched when Elevated -Lipodermatosclerosis -Other Deformity -Prior Foot Ulcer -Charcot Joint -Prior Amputation -Toe Nail Assessment -Discolored -Deformed -Improper Length & Hygeine Left -Polpliteal Pulses Palpable -Popliteal Doppler -Posterior Tibial Palpable -Posterior Tibial Doppler -Dorsalis Pedis Palpable -Dorsalis Pedis Doppler -Extremity Color -Hair Growth on Legs -Hair Growth on Toes -Temperature of Extremity -Capillary Refill -Dependent Rubor -Blanched when Elevated -Lipodermatosclerosis -Other Deformity -Prior Foot Ulcer -Charcot Joint -Prior Amputation -Thick -Discolored -Deformed -Improper Length & Hygeine Neuropathy Assessment Feet - Top Side and Bottom (a) 1 - + 2 - + 3 - + 4 - + 5 - + 6 - + 7 - + WC - Nurse 1 - General Ulcer Measurement Start: 04/20/21 09:56 Freq: Status: Active Protocol: Activity Type Activity Date Activity User E-Sign Co-Sign Detail Recorded Client Recorded Date Recorded By Document 04/20/21 10:09 KR [id number] 04/20/21 10:18 KR Document 04/27/21 09:33 DL [id number] 04/27/21 09:38 DL Document 05/04/21 13:51 KR [id number] 05/04/21 13:55 KR Document 05/11/21 14:34 ML [id number] 05/11/21 14:36 ML 04/20/21 04/27/21 05/04/21 10:09 09:33 13:51 Wound Center Nurse 1 #2 Left Grider Cluster -Combined with other wound No -Current Size (cm) - Length 6.5 7.3 0.5 -Current Size (cm) - Width 2.5 2 0.3 -Current Size (cm) - Depth 0.1 0.1 0.1 -Total Square Cm 16.25 14.6 0.15 -Photo Taken No -Epithelialization None Present -Tunneling No -Undermining/Tunneling No -Circular Undermining No -Exudate Amt Medium Medium Small -Exudate Type Serosanguineous Serosanguineous Serosanguineous -Wound Margin Distinct, Flat & Intact Distinct, Outline Outline Attached Attached -Granulation Amt Large (67-100%) Medium (34-66%) Medium (34-66%) -Granulation Quality Red Red Red -Slough/Fibrin Yes -Necrosis Amt None Present (0 Medium (34-66%) None Present (0 %) %) -Necrotic Tissue Type Adherent Slough -Texture (Dagmar-wound Skin Appearance) Assessed, Assessed, Assessed, Scarring Scarring Scarring -Moisture (Dagmar-wound Skin Appearance) No Abnormality, Assessed No Abnormality, Assessed Assessed -Color (Dagmar-wound Skin Appearance) No Abnormality, Assessed, No Abnormality, Assessed Erythema, Assessed Hemosiderin Staining -Temperature (Dagmar-wound Skin No Abnormality No Abnormality No Abnormality Appearance) (Pt Warm) (Pt Warm) (Pt Warm) -Tenderness on Palpation (Dagmar-wound No Yes No Skin Appearance) -Ulcer Cleansing Rinsed/ Rinsed/ Rinsed/ Irrigated with Irrigated with Irrigated with Saline Saline Saline -Foul Odor after Cleansing No No No -Anesthetic Used 4% Lidocaine 4% Lidocaine 4% Lidocaine Solution Solution Solution Lower Limb Edema Present Yes Right Calf (cm) 48.3 Right Ankle (cm) 28 Left Calf (cm) 47.7 46 49.4 Left Ankle (cm) 29 28 29 05/11/21 14:34 Wound Center Nurse 1 #2 Left Grider Cluster -Combined with other wound -Current Size (cm) - Length 0.1 -Current Size (cm) - Width 0.1 -Current Size (cm) - Depth 0.1 -Total Square Cm 0.01 -Photo Taken -Epithelialization -Tunneling -Undermining/Tunneling -Circular Undermining -Exudate Amt None Present -Exudate Type -Wound Margin Distinct, Outline Attached -Granulation Amt Large (67-100%) -Granulation Quality Power -Slough/Fibrin No -Necrosis Amt None Present (0 %) -Necrotic Tissue Type -Texture (Dagmar-wound Skin Appearance) Assessed -Moisture (Dagmar-wound Skin Appearance) No Abnormality, Assessed -Color (Dagmar-wound Skin Appearance) Assessed -Temperature (Dagmar-wound Skin No Abnormality Appearance) (Pt Warm) -Tenderness on Palpation (Dagmar-wound No Skin Appearance) -Ulcer Cleansing Rinsed/ Irrigated with Saline -Foul Odor after Cleansing No -Anesthetic Used 5% Lidocaine Gel Lower Limb Edema Present Right Calf (cm) Right Ankle (cm) Left Calf (cm) Left Ankle (cm) WC - Nurse 2 - General Ulcer CM Notes Start: 04/20/21 09:56 Freq: Status: Active Protocol: Activity Type Activity Date Activity User E-Sign Co-Sign Detail Recorded Client Recorded Date Recorded By Document 04/20/21 11:04 SHALONDA [id number] 04/20/21 11:12 Document 04/27/21 10:02 JF [id number] 04/27/21 10:12 JF Document 05/04/21 14:07 JF [id number] 05/04/21 14:09 SHALONDA 04/20/21 04/27/21 05/04/21 11:04 10:02 14:07 Wound Center Nurse 2 #2 Left Grider Cluster -Time 11:08 10:03 14:07 -Correct Patient Yes Yes Yes -Correct Side, Site, Position Yes Yes Yes -Correct Procedure Yes Yes Yes -Procedure Performed Yes Yes Yes -Type of Procedure Debridement Debridement Debridement -Clinical Debridement Subcutaneous Subcutaneous Subcutaneous -Tissue Removed Subcutaneous Subcutaneous Subcutaneous -Post Debridement (cm) - Length 7 7.8 0.7 -Post Debridement (cm) - Width 4 3 0.5 -Post Debridement (cm) - Depth 0.1 0.1 0.1 -Total Square (Post) (cm) 28 23.4 0.35 -Area of Debridement (cm) - Length 7 7.8 0.7 -Area of Debridement (cm) - Width 4 3 0.5 -Total Square (Area) (cm) 28 23.4 0.35 -Tunneling No No No -Undermining/Tunneling No No No -Circular Undermining No No No -Wound/Ulcer Outcome Not Healed Not Healed Not Healed -Ulcer Cleansing Rinsed/ Rinsed/ Rinsed/ Irrigated with Irrigated with Irrigated with Saline Saline Saline -Foul Odor after Cleansing No No No -Bioengineered Tissue No No No -Bleeding Controlled with Pressure Pressure Pressure -Offloading No No No -Treatment Response Procedure Procedure Procedure Tolerated Well Tolerated Well Tolerated Well -Debridement - Subq, 1st 20sq cm Yes Yes Yes -Debridement, SubQ, ea addt'l 20sq cm 1 1 or part thereof Pain Scale: 0-10 Numeric Is Patient Pain Free? Yes Yes Yes WC - Nurse 3 - General Ulcer D/C NN Start: 04/20/21 09:56 Freq: Status: Active Protocol: Activity Type Activity Date Activity User E-Sign Co-Sign Detail Recorded Client Recorded Date Recorded By Document 04/20/21 11:18 DL [id number] 04/20/21 11:20 DL Document 05/04/21 14:24 KR [id number] 05/04/21 14:25 KR 04/20/21 05/04/21 11:18 14:24 Wound Care Nurse 3 #2 Left Grider Cluster -Ulcer Cleansing Rinsed/ Rinsed/ Irrigated with Irrigated with Saline Saline -Foul Odor after Cleansing No -Primary Dressing Applied Fibracol Plus Fibracol Plus 4x4 4x4,NonAdherent Contact Layer -Primary Dressing Covered/Secured with Dry Gauze & Dry Gauze, Roll Gauze, Secured with Secured with Tape Tape -Fibracol Plus 4x4 1 1 Left -Compression Wrap Jerrell Wrap -Tubular Bandage Single Layer -Size of Tubigrip Used Size D -Size D ($) 1 Treatment Response Procedure Tolerated Well Pain Scale: 0-10 Numeric Is Patient Pain Free? 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 Since he is now healed, he will place adaptic cover the area that is newly healed because it is very fragile for one week. He will wear a tubigrip topped with an JERRELL wrap for compression. Wound culture from 04/20/21 was positive for rare amount of Corynebacterium minutissimum. This is a skin contaminant. Will continue to monitor closely. Elevate legs as much as possible. Massage the scarring with lotion to help keep moisturized and to help soften the scarring. Instructed him that he can start wearing his compression stockings again. Follow up as needed.
== END 2021-05-11 15:37 | disposition home or self-care (01) ==
LOC: WC 14:30
PROVIDERS: PCP Internal Medicine; Visit Provider Nurse Practitioner Family
DX: I87.2 Venous insufficiency (chronic) (peripheral) (principal); L97.922 Non-pressure chronic ulcer of unspecified part of left lower leg with fat layer exposed; R60.0 Localized edema; Z79.01 Long term (current) use of anticoagulants; Z79.899 Other long term (current) drug therapy; Z86.711 Personal history of pulmonary embolism; Z86.718 Personal history of other venous thrombosis and embolism
CPT/HCPCS: 11042; 11045; 87070; 87075; 87077; 87205; 99213; G0463